=== PATIENT | male | born 1960 | race Caucasian/White ===

== ENCOUNTER 2018-07-01 10:51 | Inpatient (IN) | payer SELFPAY ==
[~2018-07-01] VITALS: Ht 180.3 cm; Wt 96.6 kg
--- NOTE | 2018-07-01 10:58 | ER Report ---
History and Physical Time Seen By MD: 10:58 HPI/ROS CHIEF COMPLAINT: Shortness of breath HISTORY OF PRESENT ILLNESS: This is a 58-year-old male who presents to the emergency department for increased shortness of breath and lower extremity edema . Patient states over the last 5-6 months he's had increased shortness of breath as well as lower extremity edema. He does not have a primary care provider however he has been following up with urgent care, he states that they've done blood work and everything is looking "okay". However the patient does have significant amount of lower extremity edema such that he is unable to lift his legs on his own. He also states that his past medical history up until about 5 or 6 months ago as been an inguinal hernia, he has a significant amount of swelling in the scrotum. He's had weeping edema in the lower extremities, he has also had several wounds that has not been healing. Over the last 1-2 weeks he's had poor circulation in the upper and lower extremities, with increased sensitivity to the cold. The patient does need a 3 person assist to get onto the gurney. Obviously short of breath. No chest pain, no nausea, no vomiting, no fevers, no chills. He does state that he's had difficulty sleeping at night, does prop his mattress up, so he states he'll just fall asleep standing up. REVIEW OF SYSTEMS: Constitutional: No fever, no chills. Eyes: No discharge. ENT: No sore throat. Cardiovascular: No chest pain, no palpitations. Respiratory: As above. Gastrointestinal: No abdominal pain, no vomiting. Genitourinary: No hematuria. Musculoskeletal: No back pain. Skin: As above. Neurological: No headache. Allergies: Coded Allergies: Penicillins (Verified Adverse Reaction, Mild, NAUSEA/VOMITING, 07/01/18) Home Meds Reported Medications Potassium Gluconate (POTASSIUM) 99 Mg Tablet, 99 MG PO QDAY 07/02/18 Magnesium Oxide (MAGNESIUM) 250 Mg Tablet, 250 MG PO QDAY 07/02/18 Multivitamin (MULTIVITAMINS) 1 Each Capsule, 1 EACH PO QDAY, CAPSULE 07/02/18 Discontinued Reported Medications [mag] No Conflict Check 07/02/18 Past Medical/Surgical History The patient has a past medical and surgical history of chronic inguinal hernia, patient also states possible myocardial infarction when he was 27. Reviewed Nurses Notes: Yes Constitutional Vital Sign - Last 24 Hours 07/01/18 07/01/18 07/01/18 07/01/18 10:51 11:04 11:10 11:15 Temp 98.3 Pulse 123 123 Resp 24 B/P (MAP) 127/97 (107) 127/97 142/111 (121) Pulse Ox 79 88 O2 Delivery Room Air Room Air 07/01/18 07/01/18 07/01/18 07/01/18 11:17 11:21 11:30 11:45 Pulse 139 Resp 25 B/P (MAP) 135/94 (108) 143/94 (110) Pulse Ox 81 O2 Delivery Nasal Cannula O2 Flow Rate 4.0 4 07/01/18 07/01/18 07/01/18 07/01/18 11:47 11:50 12:00 12:17 Pulse 122 59 Resp 31 B/P (MAP) 137/121 (126) 128/88 (101) Pulse Ox 82 87 O2 Delivery Nasal Cannula Nasal Cannula O2 Flow Rate 6 3 07/01/18 07/01/18 07/01/18 07/01/18 12:20 12:25 12:30 12:55 Pulse 89 94 87 Resp 21 20 18 B/P (MAP) 134/120 (125) Pulse Ox 92 99 89 O2 Delivery Nasal Cannula Nasal Cannula O2 Flow Rate 3 2 07/01/18 07/01/18 07/01/18 07/01/18 13:00 13:51 13:55 14:00 Pulse 112 100 Resp 27 20 B/P (MAP) 145/97 (113) 130/100 (110) 124/107 (113) Pulse Ox 89 89 O2 Delivery Nasal Cannula Nasal Cannula O2 Flow Rate 2 2 07/01/18 07/01/18 14:30 14:45 Pulse 98 Resp 24 B/P (MAP) 128/110 (116) 137/119 (125) Pulse Ox 89 O2 Delivery Nasal Cannula O2 Flow Rate 2 Physical Exam General Appearance: The patient is alert, has no immediate need for airway protection and no signs of toxicity, short of breath while talking. Eyes: Pupils equal and round no pallor or injection. ENT, Mouth: Mucous membranes are moist. Respiratory: Diminished lung sounds throughout, coarse in the right upper field. Cardiovascular: Irregular rate and rhythm, no murmurs, clicks or rubs. Gastrointestinal: Abdomen is round, soft and non tender, no masses, hypoactive bowel sounds in the right quadrants, normoactive in the left upper and lower quadrants, no abdominal bruits. Genitourinary: Massively swollen scrotum with inguinal hernia, roughly the size of a medium watermelon. Neurological: Alert and oriented 4. Moving all extremities. Following all commands. No focal neuro deficits. Skin/Extremities: 3+ pitting and weeping edema of bilateral lower extremities from knees distally, non pitting edema from the knee proximally, purplish toes and fingers with what appears to be scattered plaque psoriasis. Stage 2 Ulceration to the dorsum of the anterior surface of the right lower extermity. Musculoskeletal: Neck is supple non tender. are nontender, nonswollen and have full range of motion. DIFFERENTIAL DIAGNOSIS: After history and physical exam differential diagnosis was considered for shortness of breath including but not limited to pulmonary infectious process, COPD, asthma, pulmonary embolus and congestive heart failure. Medical Decision Making Data Points Result Diagram: 07/02/18 0544 07/03/18 0524 Laboratory Hematology Test 07/01/18 00:00 07/01/18 11:07 07/01/18 13:54 Blood Gas Puncture Site Left radial Blood Gas Patient Temperature 98.3 DEGREES Arterial Blood pH 7.35 (7.35-7.45) Arterial Blood Partial Pressure CO2 46 mmHg (32-37) Arterial Blood Partial Pressure O2 106 mmHg (60-80) Arterial Blood HCO3 26 mmol/L (20-26) Arterial Blood Oxygen Saturation 98 % (92-100) Arterial Blood Base Excess 0.0 mmol/L Kd Test Acceptable Oxygen Liters/Minute 41 D-Dimer Quantitative (PE/DVT) 3.27 ug/ml (0-0.50) Lactate 1.3 mmol/L (0.7-2.1) Magnesium Level 2.4 mg/dl (1.7-2.2) Urine Color Yellow Urine Clarity Clear Urine pH 5.0 pH (4.8-9.5) Urine Specific [place] 1.011 Urine Protein Negative mg/dL (NEGATIVE) Urine Glucose (UA) Negative mg/dL (NEGATIVE) Urine Ketones Negative mg/dL (NEGATIVE) Urine Blood Negative (NEGATIVE) Urine Nitrite Negative (NEGATIVE) Urine Bilirubin Negative (NEGATIVE) Urine Urobilinogen Negative mg/dL (0.2-1.9) Urine Leukocyte Esterase Negative (NEGATIVE) Urine RBC None /HPF (0-2/HPF) Urine WBC 2 /HPF (0-5/HPF) Urine Squamous Epithelial Cells Few /LPF (</=FEW) Urine Bacteria Negative /HPF (NONE-FEW) Urine Hyaline Casts Few /LPF (NONE-FEW) Urine Mucus None /HPF (NONE-FEW) Chemistry Test 07/01/18 00:00 07/01/18 11:07 07/01/18 13:54 Blood Gas Puncture Site Left radial Blood Gas Patient Temperature 98.3 DEGREES Arterial Blood pH 7.35 (7.35-7.45) Arterial Blood Partial Pressure CO2 46 mmHg (32-37) Arterial Blood Partial Pressure O2 106 mmHg (60-80) Arterial Blood HCO3 26 mmol/L (20-26) Arterial Blood Oxygen Saturation 98 % (92-100) Arterial Blood Base Excess 0.0 mmol/L Kd Test Acceptable Oxygen Liters/Minute 41 D-Dimer Quantitative (PE/DVT) 3.27 ug/ml (0-0.50) Lactate 1.3 mmol/L (0.7-2.1) Magnesium Level 2.4 mg/dl (1.7-2.2) Urine Color Yellow Urine Clarity Clear Urine pH 5.0 pH (4.8-9.5) Urine Specific [place] 1.011 Urine Protein Negative mg/dL (NEGATIVE) Urine Glucose (UA) Negative mg/dL (NEGATIVE) Urine Ketones Negative mg/dL (NEGATIVE) Urine Blood Negative (NEGATIVE) Urine Nitrite Negative (NEGATIVE) Urine Bilirubin Negative (NEGATIVE) Urine Urobilinogen Negative mg/dL (0.2-1.9) Urine Leukocyte Esterase Negative (NEGATIVE) Urine RBC None /HPF (0-2/HPF) Urine WBC 2 /HPF (0-5/HPF) Urine Squamous Epithelial Cells Few /LPF (</=FEW) Urine Bacteria Negative /HPF (NONE-FEW) Urine Hyaline Casts Few /LPF (NONE-FEW) Urine Mucus None /HPF (NONE-FEW) Coagulation Test 07/01/18 11:07 D-Dimer Quantitative (PE/DVT) 3.27 ug/ml Urinalysis Test 07/01/18 13:54 Urine Color Yellow Urine Clarity Clear Urine pH 5.0 pH (4.8-9.5) Urine Specific [place] 1.011 Urine Protein Negative mg/dL (NEGATIVE) Urine Glucose (UA) Negative mg/dL (NEGATIVE) Urine Ketones Negative mg/dL (NEGATIVE) Urine Blood Negative (NEGATIVE) Urine Nitrite Negative (NEGATIVE) Urine Bilirubin Negative (NEGATIVE) Urine Urobilinogen Negative mg/dL (0.2-1.9) Urine Leukocyte Esterase Negative (NEGATIVE) Urine RBC None /HPF (0-2/HPF) Urine WBC 2 /HPF (0-5/HPF) Urine Squamous Epithelial Cells Few /LPF (</=FEW) Urine Bacteria Negative /HPF (NONE-FEW) Urine Hyaline Casts Few /LPF (NONE-FEW) Urine Mucus None /HPF (NONE-FEW) Microbiology Microbiology Date/Time Source Procedure Growth Status 07/01/18 11:17 Blood Peripheral Draw Blood Culture - Final Resulted 07/01/18 11:17 Blood Peripheral Draw Blood Culture - Preliminary Resulted 07/01/18 11:10 Blood Peripheral Draw Blood Culture - Preliminary NO GROWTH AFTER 2 DAYS, REINCUBATED Resulted EKG/Imaging EKG Interpretation 12 lead EKG: Time of EKG 1121. Rhythm: Intermittent atrial fibrillation, ventricular rate 139 BPM. [place]: Right axis deviation QRS: normal ST segments: No ST depression or elevation identified. No previous EKG for comparison. Imaging EXAMINATION: CTA Chest With Contrast CT Abdomen With Contrast CT Pelvis With Contrast 07/01/2018 1:10 PM HISTORY: eval for PE. Respiratory distress. Significant inguinal hernia. TECHNIQUE: Spiral scan was obtained through the chest, abdomen and pelvis during injection of nonionic iodinated intravenous contrast. Chest imaging was timed for pulmonary arterial contrast bolus.3D slab MIPs and 2D reconstructions in the coronal and sagittal planes were performed. Contrast: 90 mL of IV Isovue 370. One of the following dose optimization techniques was utilized in the performance of this exam: Automated exposure control; adjustment of the mA and/or kV according to the patient's size; or use of an iterative reconstruction technique. Specific details can be referenced in the facility's radiology CT exam operational policy. COMPARISON STUDIES: Chest x-ray today. FINDINGS: CHEST: Pulmonary arteries: There is some motion artifact in the bases and basilar contrast passed is not optimal but no PE is demonstrated. Right main pulmonary artery measures 3.1 cm. Lungs / pleura: Airspace opacity anteromedially in the left upper lobe is better defined than on the chest x-ray. Small amount of basilar consolidation is probably atelectasis. Small bilateral effusions are present. Mediastinum / cassidy: negative Heart / pericardium: Cardiomegaly particularly with right atrial prominence. Small pericardial effusion. Other vessels: Atherosclerosis includes coronary disease. Musculoskeletal / Body wall: Body wall edema. Degenerative changes in the spine. Lymph node assessment: negative Lower neck: negative ABDOMEN AND PELVIS: Liver / biliary: Heterogeneous "nutmeg" congestive appearance in the liver. No discrete focal finding. There is some fluid around the gallbladder is probably secondary to the patient's overall fluid status rather than indicative of cholec ystitis, and the gallbladder is not distended and there is no visible cholelithiasis. Pancreas: negative Spleen: negative Adrenal glands: negative Kidneys / retroperitoneum: negative Pelvic structures: negative Bowel / peritoneum / mesenteries: Large and small bowel extending into the left inguinal hernia without obstruction. Mild diverticulosis of the distal colon. Mild ascites. Vessels: Atherosclerosis. Cava is distended. Musculoskeletal / Body wall: Massive left inguinal hernia which contains loops of large and small bowel. There is also fluid collected inferiorly towards the scrotum. Extensive body wall edema. Severe degenerative changes in the right hip with milder changes on the left. Spondylosis also present. Lymph node assessment: negative IMPRESSION: 1. Negative CTA evaluation for PE although there is some technical limitation due to diminished contrast bolus and some motion in the bases. 2. Cardiomegaly with right atrial dilatation and findings of CHF including bilateral effusions and extensive body wall edema as well as mild ascites. 3. Massive left inguinal hernia contains loops of large and small bowel as well as fluid. Report Dictated By: Jaquan Hassan MD at 07/01/2018 1:56 PM Report E-Signed By: Jaquan Hassan MD at 07/01/2018 2:10 PM WSN:[id number] ED Course/Re-evaluation Clinical Indication for ER IV: Hydration, IV Access ED Course The patient was admitted to a room. A history and physical were obtained. Differential diagnoses were considered. An IV was started. A CBC, CMP, blood cultures, lactate, d-dimer and troponin were obtained. CBC unremarkable, chemistry showing BUN 59, creatinine 1.80, GFR 39.2, magnesium 2.4, alk phosphatase 167, BNP 923, ABG pH 7.35, PCO2 46, PaO2 106, negative lactate, negative troponin UA unremarkable. EKG showing atrial fibrillation, no known hi story of A. fib. With the elevated d-dimer and A. fib as well as the edema a CTA of the chest was obtained, prior to the CTA given the patient's creatinine of 1.80, GFR of 39.2, I did speak with the radiologist on-call, they felt that it was safe to give the patient IV contrast, as I was concerned about the large inguinal hernia, I did a CT of the abdomen and pelvis, contrast was a runoff from the CT of the chest. Negative CTA, bilateral pleural effusions,, ascites and a massive left inguinal hernia containing fluid as well as a large and small bowel. The patient was also given 40 mg IV Lasix. Prior to giving the Lasix I did ultrasound the massive hernia looking for a way to place the urinary catheter however there was no clear path due to the amount scrotal edema. Is there was no way to place the catheter, the Lasix was given, the patient was able to stand at bedside and urinate. In addition to the patient's heart failure and was also concerned about a wound to the right lower extremity that will need wound care consultation as it does have the appearance of a stage II ulcer. After the Lasix was given the patient had improved aeration, patient states this is the best he has felt in roughly 2 weeks. I did review the results with the patient, I did tell the patient I was concerned with the new diagnosis of heart failure, atrial fibrillation as well as the amount of edema he has his lower extremities as well as the scrotum and the hernia. My recommendation was admission to the hospital. I did speak with Dr. Noman German the hospitalist personal care home administrator as noted below, I also spoke with Dr. Quiroga the general surgeon on- call, she did evaluate the internal hernia as noted below. Dr. German did evaluate the patient, he was admitted to the medical floor as noted below. 07/01/2018 1:10:06 pm I did have Dr. Quiroga the surgeon personal care home administrator evaluate the patients large scrotum and inguinal hernia. See her notes. 07/01/2018 1:47:21 pm I did speak with Dr. Stoney Byrd the hospitalist regarding the patients case for a possible admit, he will be in to evaluate the patient. 07/01/2018 2:50:[address] Smitha German, the hospitalist was down to [place], he is except that the patient into the hospitalist services for congestive heart failure, he will also contact urology for Bruner catheter placement and evaluation. The patient is in agreement with this plan of care. Decision to Disposition Date: Jul 01, 2018 Decision to Disposition Time: 14:50 Depart Departure Latest Vital Signs Vital Signs Date Time Temp Pulse Resp B/P (MAP) Pulse Ox O2 Delivery O2 Flow Rate FiO2 07/01/18 14:45 137/119 (125) 07/01/18 14:30 98 24 89 Nasal Cannula 2 07/01/18 11:10 98.3 Impression: Primary Impression: CHF (congestive heart failure) Additional Impressions: BILATERAL INGUINAL HERNIA, W/O OBST OR GANGRENE, RECURRENT Decubital ulcer Elevated serum creatinine Atrial fibrillation Condition: Improved Disposition: Admitted from ER Problem Qualifiers Primary Impression: CHF (congestive heart failure) Heart failure type: unspecified Heart failure chronicity: unspecified Qualified Codes: I50.9 - Heart failure, unspecified Additional Impressions: Decubital ulcer Pressure injury location: other site Pressure injury stage: stage 2 Q ualified Codes: L89.892 - Pressure ulcer of other site, stage 2 Atrial fibrillation Atrial fibrillation type: unspecified Qualified Codes: I48.91 - Unspecified atrial fibrillation SANDY PELLETIER- Jul 01, 2018 10:58
[2018-07-01 11:19] LABS: PLATELET COUNT, AUTOMATED 273 K/uL (150-450)
[2018-07-01] MEDS ORDERED: FUROSEMIDE 40 MG/4 ML VIAL IVP ONE (11:40)
--- NOTE | 2018-07-01 11:57 | RADIOLOGY IMAGING REPORT ---
FACILITY: [facility] PATIENT NAME: Rachid Milian : 1960 MR: [id number] V: [id number] EXAM DATE: ORDERING PHYSICIAN: SANDY PELLETIER TECHNOLOGIST: Location: [facility] Patient: Rachid Milian : 1960 Visit/Account:[id number] Date of Sevice: 07/01/2018 Technique: CHEST SINGLE AP HISTORY: RESP DISTRESS Comparison studies: None FINDINGS: Noted is a moderate left-sided pleural effusion. There are hazy left basilar and left midlu ng opacities. The cardiomediastinal silhouette is enlarged. IMPRESSION: 1. Moderate left-sided pleural effusion with hazy left basilar and left midlung opacities which may be secondary to atelectasis; however, airspace process such as pneumonia is difficult to fully exclud e. Report Dictated By: Raymon Dsouza DO at 07/01/2018 11:51 AM Report E-Signed By: Raymon Dsouza DO at 07/01/2018 11:53 AM WSN:[id number]
--- NOTE | 2018-07-01 12:41 | RADIOLOGY IMAGING REPORT ---
[place] [facility] [place] NAME: Rachid Milian : 1960 MR: [id number] V: [id number] EXAM DATE: ORDERING PHYSICIAN: SANDY PELLETIER TECHNOLOGIST: Location: [facility] [place] Patient: Rachid Milian : 1960 Visit/Account:[id number] Date of Sevice: 07/01/2018 Technique: ANKLE 3 VIEW MIN RIGHT HISTORY: eval for osteo Comparison studies: None FINDINGS: There is no acute fracture. The ankle mortise is maintained. No cortical destructive proces s. Soft tissue swelling surrounds ankle. IMPRESSION: 1. No acute osseous process. Report Dictated By: Raymon Dsouza DO at 07/01/2018 12:30 PM Report E-Signed By: Raymon Dsouza DO at 07/01/2018 12:36 PM WSN:[id number]
--- NOTE | 2018-07-01 12:57 | Gen Surgery History & Physical ---
History of Present Illness Chief Complaint Left inguinal hernia History of Present Illness 58 year old man presents to hospital with c/o shortness of air. Came to ED at prompting of his boss who accompanied him to the ED. Upon evaluation in the ED found to have significant symmetric pitting LE edema extending to upper thigh and scrotum bilaterally. Pt also tachycardic and short of air. Pt reports he has no known medical problems and only surgery was tonsillectomy as a child. He reports he has had LE edema and scrotal swelling for several months. He has had a known left inguinal hernia he reports for >28 years, but states that it has always been reducible "until his swelling got bad and then he didn't try." Surgery is consulted regarding possible incarceration. He denies obstructive symptoms and have normal BM daily. He denies significant inguinal or scrotal pain other than "skin tightness." History Unable To Obtain Past Medical: Pt denies past medical problems. Home Meds No Active Prescriptions or Reported Meds Allergies: Coded Allergies: Penicillins (Verified Adverse Reaction, Mild, NAUSEA/VOMITING, 07/01/18) Review of Systems Respiratory: Shortness of Breath, Cough Other Symmetric pitting LE edema and scrotal edema. Exam General Appearance: Alert, Awake Eyes: PERRLA ENT: Moist Mucous Membranes Cardiovascular: Other (tachycardic, some ectopy noted) Respiratory: Other (On nasal cannula, unlabored) GI: Abd Soft and Non-Tender : Other (Large scrotal edema making inguinal exam challenging. Bedside scrotal ultrasound shows ascitic fluid and peristalsing bowel bilaterally. ) Extremities: Edema, Other (skin blistering and weeping, skin erythematous, non- blanching) Integumentary: Other (skin blistering noted with weeping serous fluid) Psych: Alert & Oriented X3, Appropriate Mood & Affect Medical Decision Making Data Points Result Diagram: 07/01/18 1107 07/01/18 1107 Assessment and Plan Problems: (1) BILATERAL INGUINAL HERNIA, W/O OBST OR GANGRENE, RECURRENT Assessment & Plan: 07/01/18: Pt with significant edema, tachycardia, SOA. Consulted regarding known left inguinal hernia. Pt with no clinical evidence of strangulation, no obstructive symptoms, ultrasound consistent with bowel containing inguinal hernia. Pt undergoing CT scan - will f/u results. Agree with hospitalist eval/admit and optimization of medical problems before considering elective hernia repair. Should patient develop symptoms concerning for strangulation may re-consult. Venous Thromboembolism Antithrombotics Is Pt On Any Antithrombotics?: No ELISABETH CHAVIRA MD Jul 01, 2018 12:57
[2018-07-01] MEDS ORDERED: NS(*) 0.9% 500 ML BAG 500 ML IV ONE (13:15)
[2018-07-01] MEDS ORDERED: NS(*) 0.9% 50 ML BAG 50 ML ONE (13:22)
[2018-07-01] MEDS ORDERED: IOPAMIDOL 76% 100 ML INFUS BTL 100 ML ONE (13:22)
--- NOTE | 2018-07-01 13:48 | EKG ---
FACILITY: [facility] - [place] PATIENT NAME: CHAN MAYNARD : [id number] MR: [id number] V: [id number] EXAM DATE: ORDERING PHYSICIAN: SANDY PELLETIER TECHNOLOGIST: KHOI Test Reason : SOB Blood Pressure : / mmHG Vent. Rate : 139 BPM Atrial Rate : 147 BPM P-R Int : 000 ms QRS Dur : 094 ms QT Int : 304 ms P-R-T Axes : 000 120 066 degrees QTc Int : 462 ms Atrial fibrillation with rapid ventricular response Right axis deviation Low voltage QRS Septal infarct , age undetermined Abnormal ECG No previous ECGs available Confirmed by ROBERTA MENDEZ ([id number]) on 07/01/2018 3:26:15 PM Referred By: SANDY Confirmed By:ROBERTA MENDEZ
--- NOTE | 2018-07-01 14:14 | RADIOLOGY IMAGING REPORT ---
FACILITY: [facility] - [place] PATIENT NAME: Rachid Milian : 1960 MR: [id number] V: [id number] EXAM DATE: ORDERING PHYSICIAN: SANDY PELLETIER TECHNOLOGIST: Location: [facility] Patient: Rachid Milian : 1960 Visit/Account:[id number] Date of Sevice: 07/01/2018 EXAMINATION: CTA Chest With Contrast CT Abdomen With Contrast CT Pelvis With Contrast 07/01/2018 1:10 PM HISTORY: eval for PE. Respiratory distress. Significant inguinal hernia. TECHNIQUE: Spiral scan was obtained through the chest, abdomen and pelvis during injection of nonio reggie iodinated intravenous contrast. Chest imaging was timed for pulmonary arterial contrast bolus.3D slab MIPs and 2D reconstructions in the coronal and sagittal planes were performed. Contrast: 90 mL of IV Isovue 370. One of the following dose optimization techniques was utilized in the performance of this exam: Autom ated exposure control; adjustment of the mA and/or kV according to the patient's size; or use of an i terative reconstruction technique. Specific details can be referenced in the facility's radiology C T exam operational policy. COMPARISON STUDIES: Chest x-ray today. FINDINGS: CHEST: Pulmonary arteries: There is some motion artifact in the bases and basilar contrast passed is not opt imal but no PE is demonstrated. Right main pulmonary artery measures 3.1 cm. Lungs / pleura: Airspace opacity anteromedially in the left upper lobe is better defined than on the chest x-ray. Small amount of basilar consolidation is probably atelectasis. Small bilateral effusions are present. Mediastinum / cassidy: negative Heart / pericardium: Cardiomegaly particularly with right atrial prominence. Small pericardial effusi on. Other vessels: Atherosclerosis includes coronary disease. Musculoskeletal / Body wall: Body wall edema. Degenerative changes in the spine. Lymph node assessment: negative Lower neck: negative ABDOMEN AND PELVIS: Liver / biliary: Heterogeneous "nutmeg" congestive appearance in the liver. No discrete focal finding . There is some fluid around the gallbladder is probably secondary to the patient's overall fluid sta tus rather than indicative of cholecystitis, and the gallbladder is not distended and there is no vis ible cholelithiasis. Pancreas: negative Spleen: negative Adrenal glands: negative Kidneys / retroperitoneum: negative Pelvic structures: negative Bowel / peritoneum / mesenteries: Large and small bowel extending into the left inguinal hernia witho ut obstruction. Mild diverticulosis of the distal colon. Mild ascites. Vessels: Atherosclerosis. Cava is distended. Musculoskeletal / Body wall: Massive left inguinal hernia which contains loops of large and small bow el. There is also fluid collected inferiorly towards the scrotum. Extensive body wall edema. Severe d egenerative changes in the right hip with milder changes on the left. Spondylosis also present. Lymph node assessment: negative IMPRESSION: 1. Negative CTA evaluation for PE although there is some technical limitation due to diminished contr ast bolus and some motion in the bases. 2. Cardiomegaly with right atrial dilatation and findings of CHF including bilateral effusions and ex tensive body wall edema as well as mild ascites. 3. Massive left inguinal hernia contains loops of large and small bowel as well as fluid. Report Dictated By: Jaquan Hassan MD at 07/01/2018 1:56 PM Report E-Signed By: Jaquan Hassan MD at 07/01/2018 2:10 PM WSN:[id number]
--- NOTE | 2018-07-01 14:15 | RADIOLOGY IMAGING REPORT ---
FACILITY: [facility] [place] PATIENT NAME: Rachid Milian : 1960 MR: [id number] V: [id number] EXAM DATE: ORDERING PHYSICIAN: SANDY PELLETIER TECHNOLOGIST: Location: [facility] Patient: Rachid Milian : 1960 Visit/Account:[id number] Date of Sevice: 07/01/2018 EXAMINATION: CTA Chest With Contrast CT Abdomen With Contrast CT Pelvis With Contrast 07/01/2018 1:10 PM HISTORY: eval for PE. Respiratory distress. Significant inguinal hernia. TECHNIQUE: Spiral scan was obtained through the chest, abdomen and pelvis during injection of nonio reggie iodinated intravenous contrast. Chest imaging was timed for pulmonary arterial contrast bolus.3D slab MIPs and 2D reconstructions in the coronal and sagittal planes were performed. Contrast: 90 mL of IV Isovue 370. One of the following dose optimization techniques was utilized in the performance of this exam: Autom ated exposure control; adjustment of the mA and/or kV according to the patient's size; or use of an i terative reconstruction technique. Specific details can be referenced in the facility's radiology C T exam operational policy. COMPARISON STUDIES: Chest x-ray today. FINDINGS: CHEST: Pulmonary arteries: There is some motion artifact in the bases and basilar contrast passed is not opt imal but no PE is demonstrated. Right main pulmonary artery measures 3.1 cm. Lungs / pleura: Airspace opacity anteromedially in the left upper lobe is better defined than on the chest x-ray. Small amount of basilar consolidation is probably atelectasis. Small bilateral effusions are present. Mediastinum / cassidy: negative Heart / pericardium: Cardiomegaly particularly with right atrial prominence. Small pericardial effusi on. Other vessels: Atherosclerosis includes coronary disease. Musculoskeletal / Body wall: Body wall edema. Degenerative changes in the spine. Lymph node assessment: negative Lower neck: negative ABDOMEN AND PELVIS: Liver / biliary: Heterogeneous "nutmeg" congestive appearance in the liver. No discrete focal finding . There is some fluid around the gallbladder is probably secondary to the patient's overall fluid sta tus rather than indicative of cholecystitis, and the gallbladder is not distended and there is no vis ible cholelithiasis. Pancreas: negative Spleen: negative Adrenal glands: negative Kidneys / retroperitoneum: negative Pelvic structures: negative Bowel / peritoneum / mesenteries: Large and small bowel extending into the left inguinal hernia witho ut obstruction. Mild diverticulosis of the distal colon. Mild ascites. Vessels: Atherosclerosis. Cava is distended. Musculoskeletal / Body wall: Massive left inguinal hernia which contains loops of large and small bow el. There is also fluid collected inferiorly towards the scrotum. Extensive body wall edema. Severe d egenerative changes in the right hip with milder changes on the left. Spondylosis also present. Lymph node assessment: negative IMPRESSION: 1. Negative CTA evaluation for PE although there is some technical limitation due to diminished contr ast bolus and some motion in the bases. 2. Cardiomegaly with right atrial dilatation and findings of CHF including bilateral effusions and ex tensive body wall edema as well as mild ascites. 3. Massive left inguinal hernia contains loops of large and small bowel as well as fluid. Report Dictated By: Jaquan Hassan MD at 07/01/2018 1:56 PM Report E-Signed By: Jaquan Hassan MD at 07/01/2018 2:10 PM WSN:[id number]
[2018-07-01] MEDS ORDERED: INFLUENZA VIRUS VAC 0.5ML SYR IM ONLY ONE (14:50)
[2018-07-01] MEDS ORDERED: NICOTINE INH SYSTEM 10 MG/INH INH PRN (15:15)
[2018-07-01 15:16] LABS: INR 1.14
--- NOTE | 2018-07-01 15:44 | History & Physical ---
History of Present Illness History of Present Illness 58yo male with a h/o chronic LE edema, CAD and cigarette use who came to the ER for progressive FRAIRE, orthopnea, diffuse edema, and weeping legs. He was in his normal state of health until about a year ago. He started getting more consistent LE edema. About 6 months ago, the edema worsened. 2 months ago, he developed some scrotal edema. He has received three different courses of Lasix through a local urgent care for about 14 days over the last couple months for the edema, which helped a bit. He said that the cause of the edema wasn't clear. For the last few weeks, he started sleeping in a recliner because of orthopnea. He has had a multiple pillow orthopnea for about 2 years. For the last couple of days, he has had to sleeping almost standing because he can't even lay back in the recliner. In the last 2 weeks, he has had progressive FRAIRE such that in the last few days he can barely ambulate. He hasn't been able to reduce his chronic inguinal hernia for about 2 months. He has had the hernia for about 30 years. In his mid 20's when he weighed over 300lbs, he had 2 heart attacks. His RAD was occluded, but he never had any intervention done. He smokes 1/2 ppd and has smoked for about 40 years. He has 2 drinks a night, but no h/o tremors when stopping drinking for a couple of days. He denies cp/n/v/f/c/diarrhea. He has gained 50lbs in the last year. In the ER, he received 40mg of Lasix. They tried to place a Bruner catheter, but were unable to secondary the massive scrotal edema. 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 See HPI. Hx Alcohol Use: Yes (drinks daily) Review of Systems All Systems Reviewed/Normal: Yes, Except as Noted Exam Vital Signs Vital Signs Date Time Temp Pulse Resp B/P (MAP) Pulse Ox O2 Delivery O2 Flow Rate FiO2 07/01/18 14:45 137/119 (125) 07/01/18 14:30 98 24 89 Nasal Cannula 2 07/01/18 11:10 98.3 General Appearance: Alert, Awake, Other (mild wob) Neuro: No Gross deficits Eyes: PERRLA ENT: Moist Mucous Membranes Cardiovascular: Other (irreg, irreg, no m/r/g) Respiratory: Other (Decreased BS to bases) GI: Abd Soft and Non-Tender (much striae throughout abd. Line of erythema from mid abdomen down) : Other (Very enlarged scrotum about 20cm in diameter. Mildly tender to palpation. Cannot see penis. Induration/erythema in groin bilaterally. ) Extremities: Edema (2+ pitting to thighs. Diffuse erythema, non-tender in LE. Multiple areas of skin breakdown on legs with clear drainage.) Integumentary: No Jaundice, No Cyanosis Medical Decision Making Data Points Result Diagram: 07/01/18 1107 07/01/181106 Item Value Date Time Arterial Blood pH 7.35 07/01/18 0000 Arterial Blood Partial Pressure CO2 46 mmHg H 07/01/18 0000 Arterial Blood Partial Pressure O2 106 mmHg *H 07/01/18 0000 Arterial Blood HCO3 26 mmol/L 07/01/18 0000 Arterial Blood Oxygen Saturation 98 % 07/01/18 0000 Neutrophils (%) (Auto) 76.7 % H 07/01/18 1107 Lymphocytes (%) (Auto) 9.7 % L 07/01/18 1107 Monocytes (%) (Auto) 11.6 % 07/01/18 1107 Eosinophils (%) (Auto) 1.3 % 07/01/18 1107 Lactate 1.3 mmol/L 07/01/18 1107 Magnesium Level 2.4 mg/dl H 07/01/18 1107 B-Type Natriuretic Peptide 923 pg/ml H 07/01/18 1107 Alkaline Phosphatase 167 U/L H 07/01/18 1107 Troponin I 0.044 ng/ml 07/01/18 1107 Total Bilirubin 0.8 mg/dl 07/01/18 1107 Aspartate Amino Transf (AST/SGOT) 54 U/L H 07/01/18 1107 Alanine Aminotransferase (ALT/SGPT) 49 U/L 07/01/18 1107 Urine RBC None /HPF 07/01/18 1354 Urine WBC 2 /HPF 07/01/18 1354 Urine Squamous Epithelial Cells Few /LPF 07/01/18 1354 Urine Protein Negative mg/dL 07/01/18 1354 Urine Glucose (UA) Negative mg/dL 07/01/18 1354 Urine Leukocyte Esterase Negative 07/01/18 1354 Urine Bacteria Negative /HPF 07/01/18 1354 Urine Hyaline Casts Few /LPF 07/01/18 1354 D-Dimer Quantitative (PE/DVT) 3.27 ug/ml H 07/01/18 1107 Prothromb Time International Ratio 1.14 07/01/18 1107 EKG / Imaging EKG Interpretation AFib with RVR. Imaging Chest CTA - 1. Negative CTA evaluation for PE although there is some technical limitation due to diminished contrast bolus and some motion in the bases. 2. Cardiomegaly with right atrial dilatation and findings of CHF including bilateral effusions and extensive body wall edema as well as mild ascites. 3. Massive left inguinal hernia contains loops of large and small bowel as well as fluid. Abd/Pelvis CT - 1. Negative CTA evaluation for PE although there is some technical limitation due to diminished contrast bolus and some motion in the bases. 2. Cardiomegaly with right atrial dilatation and findings of CHF including luanne ateral effusions and extensive body wall edema as well as mild ascites. 3. Massive left inguinal hernia contains loops of large and small bowel as well as fluid. Ankle Xray - 1. No acute osseous process. CXR - 1. Moderate left-sided pleural effusion with hazy left basilar and left midlung opacities which may be secondary to atelectasis; however, airspace process such as pneumonia is difficult to fully exclude. Assessment and Plan Problems: (1) CHF (congestive heart failure) Status: Acute Assessment & Plan: He presented worsening LE edema for about a year, scrotal s welling for about 3 months, and progressive dyspnea and orthopnea over the last couple weeks. He has diffuse anasarca with weeping leg wounds and 20cm diameter scrotum. BNP is elevated, cardiomegaly by CT and he has bilateral pleural effusions by CT. He doesn't seek routine health care. He likely has systolic dysfunction. He was given 40mg of IV Lasix in the ER. Will check daily wts, get an echo, start a heart failure diet, check TSH, and start Coreg. (2) Anasarca Status: Acute Assessment & Plan: Secondary to CHF. He has weeping legs and might need wound care to legs. No protein in urine, INR wnl. Checking TSH. (3) Elevated serum creatinine Status: Acute Assessment & Plan: Likely secondary to CHF exacerbation. He did get IV contrast. Will follow closely. (4) Atrial fibrillation Status: Chronic Assessment & Plan: It is unclear how long he has had it. It certainly has contributed to the CHF. He was initially tachycardic to the 140's, but at rest his heart rate is around 100. He will be placed on telemetry and started on Coreg. He will be given renally dose Lovenox for stroke prophylaxis. (5) Inguinal hernia Status: Chronic Assessment & Plan: Left sided with loops of bowel in it. No evidence of strangulation. Dr. Miranda (surgery) saw the patient. (6) CAD (coronary artery disease) Status: Chronic Assessment & Plan: He reportedly had occlusion of his RAD in his mid 20's without any intervention. Might consider starting ASA when cr improves. He likely should be on a statin as well, but will wait until acute issues stabilize. Venous Thromboembolism Antithrombotics Is Pt On Any Antithrombotics?: No Exam Sepsis Risk: No Definite Risk Problem Qualifiers (1) CHF (congestive heart failure): Heart failure type: unspecified Heart failure chronicity: unspecified Qualified Codes: I50.9 - Heart failure, unspecified ROBRETA MENDEZ MD Jul 01, 2018 15:44
[2018-07-01] MEDS ORDERED: NICOTINE CARTRIDGE 1 EA PO PRN (15:55)
[2018-07-01 16:27] VITALS: BP 144/103
[2018-07-01] MEDS: ENOXAPARIN 100 MG/ML SYR SC SCH (17:13)
[2018-07-01 19:13] VITALS: BP 136/72
[2018-07-01] MEDS: CARVEDILOL 3.125 MG TAB PO SCH (20:34)
[2018-07-01] MEDS: NYSTATIN 100,000 U/GM PWD 15GM TP SCH (20:34)
[2018-07-02] VITALS (7 sets, daily range): BP systolic 102–117; BP diastolic 72–100
[2018-07-02 06:05] LABS: PLATELET COUNT, AUTOMATED 228 K/uL (150-450)
[2018-07-02 06:11] LABS: INR 1.2
[2018-07-02] MEDS: BUMETANIDE 1 MG/4 ML SDV IVP SCH ×3 (09:16→17:45)
[2018-07-02] MEDS: CARVEDILOL 3.125 MG TAB PO SCH ×2 (09:17→20:54)
[2018-07-02] MEDS: NYSTATIN 100,000 U/GM PWD 15GM TP SCH ×2 (09:17→20:54)
[2018-07-02] MEDS ORDERED: mag (12:33)
[2018-07-02] MEDS ORDERED: MULT1CAP59 PO (12:33)
[2018-07-02] MEDS ORDERED: MAGN250T34 PO (12:39)
[2018-07-02] MEDS ORDERED: POTA99TA6 PO (12:39)
--- NOTE | 2018-07-02 12:49 | Hospitalist Progress Note ---
Subjective Progress Notes Subjective 58M with minimal PMHx and did not seek frequent medical assistance, admitted for CHF. AFSHIN overnight, tolerated diuresis well. Will increase rate of diuresis today. Patient Complains of: Cardiovascular: Other (orthopnea); No: Chest Pain Respiratory: Shortness of Breath Musculoskeletal: Other (edema) Physical Exam Vital Signs Date Time Temp Pulse Resp B/P (MAP) Pulse Ox O2 Delivery O2 Flow Rate FiO2 07/02/18 11:29 97.3 107 20 108/82 (91) 97 Nasal Cannula 3.0 Intake and Output 07/02/18 07:00 Intake Total 1100 ml Output Total 2750 ml Balance -1650 ml Intake Oral 1100 ml Output Urine Total 2750 ml # Voids 4 General Appearance: Alert, Awake, No Acute Distress, Afebrile Neuro: No Gross deficits ENT: Normal Cardiovascular: Other (irregluarly irregular, severe pitting edema to thighs, grossly edematous scrotum) Respiratory: No Respiratory Distress GI: Soft and Non-Tender Extremities: Soft and Non Tender, Warm, Pulses, Perfused, Edema (severe bialteral) Result Diagram: 07/02/1844 07/02/18543 Assessment and Plan Problems: (1) CHF (congestive heart failure) Status: Acute Assessment & Plan: He presented worsening LE edema for about a year, scrotal swelling for about 3 months, and progressive dyspnea and orthopnea over the last couple weeks. He has diffuse anasarca with weeping leg wounds and 20cm diameter scrotum. BNP is elevated, cardiomegaly by CT and he has bilateral pleural effusions by CT. He doesn't seek routine health care. He likely has systolic dysfunction. He was given 40mg of IV Lasix in the ER. Will check daily wts, get an echo, started a heart failure diet, check TSH, tolerating Coreg, 1mg Bumex q8h (2) Anasarca Status: Acute Assessment & Plan: Secondary to CHF. He has weeping legs and might need wound care to legs. No protein in urine, INR wnl. Checking TSH. (3) Elevated serum creatinine Status: Acute Assessment & Plan: Likely secondary to CHF exacerbation. He did get IV contrast. Improved with diuresis, likely element of cardiorenal syndrome. (4) Atrial fibrillation Status: Chronic Assessment & Plan: It is unclear how long he has had it. It certainly has contributed to the CHF. He was initially tachycardic to the 140's, but at rest his heart rate is around 100. Placed on telemetry and started on Coreg. Renally dose Lovenox for stroke prophylaxis. (5) Inguinal hernia Status: Chronic Assessment & Plan: Left sided with loops of bowel in it. No evidence of strangulation. Dr. Miranda (surgery) saw the patient. (6) CAD (coronary artery disease) Status: Chronic Assessment & Plan: He reportedly had occlusion of his RAD in his mid 20's without any intervention. Might consider starting ASA when cr improves. He likely should be on a statin as well, but will wait until acute issues stabilize. Exam Sepsis Risk: No Definite Risk Problem Qualifiers (1) CHF (congestive heart failure): Heart failure type: unspecified Heart failure chronicity: unspecified Qualified Codes: I50.9 - Heart failure, unspecified (2) Atrial fibrillation: Atrial fibrillation type: unspecified Qualified Codes: I48.91 - Unspecified atrial fibrillation NIMISHA CARRANZA DO Jul 02, 2018 12:49
[2018-07-02] MEDS: ENOXAPARIN 100 MG/ML SYR SC SCH (16:19)
--- NOTE | 2018-07-02 16:44 | Medical Nutrition Therapy ---
Nutrition Anthropometrics Height (Inches): 71.00 Height (Calculated Centimeters: 180.890066 Weight (Pounds): 236 Weight (Calculated Kilograms): 107.048 Alex Nutrition Score: Adequate Alex Nutrition Risk Score: 17 Dietary Referral Nutrition Risk Factors: Stg 2-4 Press Ulcer, Non-Healing Wound Nutrition Risk Comment: Physical Findings Physical Appearance: Obese BMI 30-39 Skin Appearance Skin Appearance: Edema Edema Location Modifier: Both Edema Location: Lower Extremity Type of Edema: Degree of Edema: 4+ Gastrointestinal Symptoms GI Symtoms: Tube Present: Bowel Sounds: Recent Bowel Pattern: Stool Characteristics: Nutritional Diagnosis Nutritional Risk Acuity 2: CHF w/Complication, Abcess/Non-Healing Wound Nutritional Risk Acuity 4: Good Appetite Nutritional Acuity: 2-Moderate Nutrition Diagnosis: Decreased Nutrient Needs Nutrition Etiology: Physiological Causes Nutrition Problem/Etiology/Sym: Decreased Na and fluid needs r/t dx CHF AEB BNP 711 with 4+ edema. Energy Requirement: 2260 (M- St J) Protein Requirement: 107 (1gm/kg) Fluid Requirement: 2000 Diet Type: Diet as Tolerated JOSH/REG Nutrition Intervention: Change diet (recommend CHF diet) Drug: Diuretics Nutrition Monitoring & Eval Nutrition Goals: Eat 75-100% Meal RD Patient Assessment Time: [address] Assessment Type: RD Assessment Patient Nutrition Acuity: 2-Moderate Follow Up Date: Jul 06, 2018 Nutritional Comment: 07/02 Pt admitted with CHF and anasarca. Pt has 4+ weeping edema. Pt reports 50# wt gain past year. Anticipate wt loss when edema resolved. Pt is on Regualr diet and eating 100%. Recommend CHF diet. alb 2.7, BNP 711, Mg 2.4, K+ 4. Pt on K+ depleting duiretic. Currently K+ iw WNR. Nursing reported non- healing wound and 2-4 stage pressure area on admission. Pt has 3" non open wound to top of foot. No pressure ulcer reported on physical assessment. Will cont to monitor and encourage intake. GABRIELA ROSALES Jul 02, 2018 16:44
--- NOTE | 2018-07-02 16:45 | NUR ---
Physical Therapy Impression PT wound eval completed: Pt supine in bed with LE's elevated on chucks pads for absorption of drainage weeping from B) LE's. Pt notes that he had ordered over the counter compression stockings and applied them at home in order to address the increasing edema that he has been experiencing over time. Pt has evidence of blisters and wounds at creases on dorsum of ankle and foot from areas where stockings typically wrinkle. Pt also has wounds in a similar pattern at L) popliteal fossa. For all wounds: Non-excisional debridement completed with the use of tweezers to a depth of subcutaneous tissue in order to remove loosely adhered slough and freshen wound edges. Wounds cleansed with sterile saline and vasaline applied to soften excoriated and edematous skin. Vasaline gauze placed in contact with blistered and open areas and silver calcium alginate applied in 2 layers to dorsum of R) ankle to address greater area of adhered slough, followed by retrograde compression wraps, with coflex 2 stage lite on L) LE and four flex wrap applied to R) LE. If pt tolerates this level of compression without medical compromise, PT will possibly progress to four flex wraps on B) LE's to more aggressively address edema management. Physical Therapy Goals Patient's Goals
[2018-07-02] MEDS ORDERED: MAG HYD/AL HYD/SIMETH 30ML UDC PO PRN (16:50)
--- NOTE | 2018-07-02 19:16 | Miscellaneous Provider Note ---
Miscellaneous Provider Note Note 2/2 blood Cx positive for GPC, has wounds on legs though no obvious infection. Will empirically cover with vancomycin until further results available. NIMISHA CARRANZA DO Jul 02, 2018 19:16
[2018-07-02] MEDS ORDERED: VANCOMYCIN(*) 1 GM VIAL 1 GM, VANCOMYCIN (*) 0.5 GM VIAL 0.5 GM in NS(*) 0.9% 250 ML BA... IVPB SCH (21:00)
[2018-07-03] VITALS (8 sets, daily range): BP systolic 102–120; BP diastolic 66–92
[2018-07-03] MEDS: BUMETANIDE 1 MG/4 ML SDV IVP SCH ×2 (06:50→13:21)
[2018-07-03] MEDS: CARVEDILOL 3.125 MG TAB PO SCH ×2 (09:00→20:32)
[2018-07-03] MEDS: POTASSIUM CHL 20 MEQ TABCR PO SCH ×2 (10:38→17:15)
[2018-07-03] MEDS: NYSTATIN 100,000 U/GM PWD 15GM TP SCH ×2 (10:38→20:32)
--- NOTE | 2018-07-03 11:04 | Hospitalist Progress Note ---
Subjective Progress Notes Subjective He reports improvement in WOB. No concerns from staff. He did walk around a bit. Wound care dressing legs. Physical Exam Vital Signs Date Time Temp Pulse Resp B/P (MAP) Pulse Ox O2 Delivery O2 Flow Rate FiO2 07/03/18 07:12 86 07/03/18 07:12 Nasal Cannula 2.0 07/03/18 06:50 98 07/03/18 06:47 98.3 24 102/75 (84) Intake and Output 07/03/18 07:00 Intake Total 1193 ml Output Total 4275 ml Balance -3082 ml Intake Oral 1193 ml Output Urine Total 4275 ml # Voids 8 General Appearance: Alert, Awake, Other (Mild to moderate WOB) Cardiovascular: Other (Irreg irreg and borderline tachycardic) Respiratory: Clear to Auscultation : Other (Scrotum is still about 20cm diameter, but less tense ) Extremities: Edema (2+ pitting in shins.) Integumentary: No Jaundice, No Cyanosis Result Diagram: 07/02/18 0544 07/03/18 0524 Assessment and Plan Problems: (1) CHF (congestive heart failure) Status: Acute Assessment & Plan: Likely, secondary reduced EF and 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 He presented worsening LE edema for about a year, scrotal swelling for about 3 months, and progressive dyspnea and orthopnea over the last couple weeks. He has diffuse anasarca with weeping leg wounds and 20cm diameter scrotum. He doesn't seek routine health care. EF is 45-50% with global hypokinesis of LV, RV severely dilated with severe pulmonary artery pressure. He is now on Bumex 1mg IV twice daily and requiring supplemental O2. Coreg was started, but BP is limiting use. Continue IV diuresis until he edema more manageable to do ADL's. He will need Cardiology followup. (2) Anasarca Status: Acute Assessment & Plan: Secondary to CHF. He has weeping legs. Getting wound care by PT. No protein in urine, INR wnl. TSH wnl. (3) Elevated serum creatinine Status: Acute Assessment & Plan: Likely secondary to CHF exacerbation. Improving with diuresis. (4) Atrial fibrillation Status: Chronic Assessment & Plan: It is unclear how long he has had it. It certainly has contributed to the CHF. He was initially tachycardic to the 140's, but at rest his heart rate is around 100. Placed on telemetry and started on Coreg. See above. On Lovenox for stroke prophylaxis. Will start warfarin with daily INR. (5) Inguinal hernia Status: Chronic Assessment & Plan: Left sided with loops of bowel in it. No evidence of strangulation. The patient reports that he has had it for 20-30 years, but hasn't been able to reduce the hernia in the last couple of weeks prior to admission. Dr. Quiroga (surgery) saw the patient and recommended optimizing CHF before considering any surgery. (6) CAD (coronary artery disease) Status: Chronic Assessment & Plan: He reportedly had occlusion of his RAD in his mid 20's without any intervention. Might consider starting ASA, but on full dose Lovenox as above. He likely should be on a statin as well, but will wait until acute issues stabilize. Exam Sepsis Risk: No Definite Risk Problem Qualifiers (1) CHF (congestive heart failure): Heart failure type: unspecified Heart failure chronicity: unspecified Qualified Codes: I50.9 - Heart failure, unspecified (2) Atrial fibrillation: Atrial fibrillation type: unspecified Qualified Codes: I48.91 - Unspecified atrial fibrillation ROBERTA MENDEZ MD Jul 03, 2018 11:04
[2018-07-03] MEDS: WARFARIN SOD 5 MG TAB PO SCH (13:22)
[2018-07-03] MEDS: ENOXAPARIN 100 MG/ML SYR SC SCH (15:33)
[2018-07-03] MEDS ORDERED: DIGOXIN 0.5 MG/2 ML AMP IVP ONE (22:35)
[2018-07-04] MEDS ORDERED: DIGOXIN 0.5 MG/2 ML AMP IVP ONE (03:00)
[2018-07-04 03:04] VITALS: BP 99/78
[2018-07-04 05:46] LABS: INR 1.12
[2018-07-04 07:00] VITALS: BP 108/79
[2018-07-04] MEDS: POTASSIUM CHL 20 MEQ TABCR PO SCH ×2 (08:46→16:30)
[2018-07-04] MEDS: DIGOXIN 0.125 MG TAB PO SCH (08:46)
[2018-07-04] MEDS: BUMETANIDE 1 MG/4 ML SDV IVP SCH ×2 (08:46→13:35)
[2018-07-04] MEDS: NYSTATIN 100,000 U/GM PWD 15GM TP SCH ×2 (08:47→21:32)
--- NOTE | 2018-07-04 10:12 | Hospitalist Progress Note ---
Subjective Progress Notes Subjective This patient was admitted for heart failure. He had rapid afib overnight and was treated with digoxin. Patient Complains of: Cardiovascular: No: Chest Pain Respiratory: No: Shortness of Breath Physical Exam Vital Signs Date Time Temp Pulse Resp B/P (MAP) Pulse Ox O2 Delivery O2 Flow Rate FiO2 07/04/18 08:46 91 Nasal Cannula 2.5 07/04/18 08:46 98 07/04/18 07:00 97.8 20 108/79 (89) Intake and Output 07/04/18 07:00 Intake Total 1083 ml Output Total 2770 ml Balance -1687 ml Intake Oral 1083 ml Output Urine Total 2770 ml # Voids 9 # Bowel Movements 1 Cardiovascular: Regular Rate and Rhythm Respiratory: Clear to Auscultation Extremities: Edema (diffuse) Result Diagram: 07/02/18 0544 07/04/18 0533 Assessment and Plan Problems: (1) Acute systolic heart failure Assessment & Plan: He presented with diffuse edema and scrotal swelling. His echocardiogram shows an ejection fraction of 45-50%. He has been receiving Bu regis to good effect. His weight is down about 4Kg since admission. He still has significant edema. We will continue the Bumex through today. Pharmacy is evaluating the different diuretic options since he has no insurance to help with medication costs. (2) Anasarca Status: Acute Assessment & Plan: Secondary to heart failure. (3) Elevated serum creatinine Status: Acute Assessment & Plan: Likely secondary to CHF exacerbation. His creatinine improved with diuresis. (4) Atrial fibrillation Status: Chronic Assessment & Plan: This was noted on his initial EKG. He was started on carvedilol, but was not having good rate control with this. He received a digoxin load last night with good results. We placed him on scheduled digoxin today. He was also started on warfarin. (5) Inguinal hernia Status: Chronic Assessment & Plan: He does have significant scrotal edema on the left and there are also loops of bowel in it. Dr. Quiroga (surgery) saw the patient and recommended optimizing CHF before considering any surgery. (6) CAD (coronary artery disease) Status: Chronic Assessment & Plan: He reportedly had an NE in his 20's, but never had any intervention. (7) Moderate to severe pulmonary hypertension Assessment & Plan: He was noted to have severe pulmonary hypertension on his echocardiogram Exam Sepsis Risk: No Definite Risk Problem Qualifiers (1) Atrial fibrillation: Atrial fibrillation type: unspecified Qualified Codes: I48.91 - Unspecified atrial fibrillation SITA PETERSON DO Jul 04, 2018 10:12
[2018-07-04 11:12] VITALS: BP 116/79
--- NOTE | 2018-07-04 11:54 | NUR ---
Physical Therapy Impression PT/OT eval completed. Pt requires 4 L/min of supplemental O2 to maintain sats in safe range during mobility. Pt tolerated ambulation in hallway with FWW x >200'. Pt with SBA/Modified indep for transfers and ambulation. Pt would benefit from further therapy to address stairs, as his laundry facilities are in the basement and pt resides alone without local family to assist. Rec home healthcare upon d/c to further indep and complete wound care with edema reduction for B) LE's. Dressings remain intact at B) lower legs with R) leg (4-ply) demonstrating improvement in girth more so than L) leg (2-ply). Pt has decreased O2 demands and has been ambulating more. Will progress to 4 ply application to B) LE's tomorrow if improvement with fluid loss continues. Physical Therapy Goals 1. Pt to ambulate >200' with least restrictive device and vital signs in safe range with modified indep 2. Pt to anders up/down 4 steps with rail and VS in safe range 3. Pt to be modified indep with bed mobility and supine to/from sit transfers 4. Pt to be modified indep with sit to/from stand transfers Patient's Goals
--- NOTE | 2018-07-04 12:47 | NUR ---
Occupational Therapy Impression OT evaluation completed with PT. Pt. would benefit from OT services 5x/ week to increase independence in ADL. Occupational Therapy Goals 1. Pt. to perform showering activities with Min A. 2. Pt. to perform toileting activities with Mod I. 3. Pt. to perform LB dressing activities with Mod I. 4. Pt. to perform grooming activities with CARSON. Patient's Goal Addendum: 07/04/18 at 1249 by CAMI MENDEZ OTR Double documentation.
[2018-07-04] MEDS: WARFARIN SOD 5 MG TAB PO SCH (13:35)
[2018-07-04 16:05] VITALS: BP 124/69
[2018-07-04] MEDS: ENOXAPARIN 100 MG/ML SYR SC SCH (16:30)
[2018-07-04 19:19] VITALS: BP 116/76
[2018-07-05] VITALS (7 sets, daily range): BP systolic 100–121; BP diastolic 72–87
[2018-07-05 06:24] LABS: INR 1.17
[2018-07-05] MEDS: POTASSIUM CHL 20 MEQ TABCR PO SCH ×2 (08:31→16:45)
--- NOTE | 2018-07-05 09:01 | NUR ---
Physical Therapy Impression Pt making progress towards functional goals. He is Enrique for bed mobility with use of leg college archivist, SBA/Enrique for transfers with RW. Pt has increased difficulty shifting COG over JAMIR. Pt tolerated ambulation with RW, with SPO2 WNL on 3L O2. PT instruction for stair negotiation, pt with fair tolerance and re-demonstration, preferring retro descent of stairs. Pt reports that he lives alone and plans to drive himself to/from appts upon d/c. Pt will benefit from practice of car transfer in/out of his [employer] prior to d/c. Physical Therapy Goals 1. Pt to ambulate >200' with least restrictive device and vital signs in safe range with modified indep 2. Pt to anders up/down 4 steps with rail and VS in safe range 3. Pt to be modified indep with bed mobility and supine to/from sit transfers 4. Pt to be modified indep with sit to/from stand transfers Patient's Goals
--- NOTE | 2018-07-05 09:29 | NUR ---
Physical Therapy Impression PT completed conservative, selective debridement as well as wound dressing changes and application of bilateral compression stockings. Rec that pt f/u with further wound care upon d/c. Pt reports no insurance and therefore may need to pursue services through the [facility], [facility] notified. Pt will need to have at least 2x/week dressing changes. Physical Therapy Goals 1. Pt to ambulate >200' with least restrictive device and vital signs in safe range with modified indep 2. Pt to anders up/down 4 steps with rail and VS in safe range 3. Pt to be modified indep with bed mobility and supine to/from sit transfers 4. Pt to be modified indep with sit to/from stand transfers Patient's Goals
[2018-07-05] MEDS: BUMETANIDE 1 MG/4 ML SDV IVP SCH (09:39)
[2018-07-05] MEDS: NYSTATIN 100,000 U/GM PWD 15GM TP SCH ×2 (09:39→20:44)
[2018-07-05] MEDS: DIGOXIN 0.125 MG TAB PO SCH (09:39)
--- NOTE | 2018-07-05 09:52 | Hospitalist Progress Note ---
Subjective Progress Notes Subjective He reports feeling improved. HR has been better. Physical Exam Vital Signs Date Time Temp Pulse Resp B/P (MAP) Pulse Ox O2 Delivery O2 Flow Rate FiO2 07/05/18 09:39 108 07/05/18 07:44 97.8 16 108/79 (89) 96 Nasal Cannula 4.0 Intake and Output 07/05/18 07:00 Intake Total 1964 ml Output Total 2602 ml Balance -638 ml Intake Oral 1964 ml Output Urine Total 2600 ml Stool Total 2 ml # Voids 2 # Bowel Movements 1 General Appearance: Alert, Awake Cardiovascular: Other (Irregular distant) Extremities: Edema (improved under LE wraps, but significant above) Integumentary: Other (several linear lesions over both LE/multiple small weeping lesions over both LE as well) Psych: Alert & Oriented X3 Result Diagram: 07/02/18 0544 07/04/1833 Assessment and Plan Problems: (1) Acute systolic heart failure Assessment & Plan: He presented with diffuse edema and scrotal swelling. His echocardiogram shows an ejection fraction of 45-50%. He has been receiving IV diuresis with fairly good effect. His weight is down since admission. He still has significant edema. We will continue the IV diuresis. Furosemide will most likely be the better diuretic option as he has no insurance to help with medication costs. (2) Moderate to severe pulmonary hypertension Assessment & Plan: He was noted to have severe pulmonary hypertension on his echocardiogram. This is most likely responsible for most of his edema. He seems to be responding fairly well to oxygen/diuresis. He will most likely need further evaluation to find definitive cause. He will be anticoagulated as he has the a-fib as well. (3) Anasarca Status: Acute Assessment & Plan: Secondary to heart failure. (4) Elevated serum creatinine Status: Acute Assessment & Plan: Likely secondary to CHF exacerbation. His creatinine has improved with diuresis/oxygenation. (5) Atrial fibrillation Status: Chronic Assessment & Plan: This was noted on his initial EKG. He was started on carvedilol, but was not having good rate control with this. He received a digoxin load and is now on oral with fairly good results. He was also started on warfarin. Monitoring daily INR - still sub-therapeutic. (6) Inguinal hernia Status: Chronic Assessment & Plan: He does have significant scrotal edema on the left and there are also loops of bowel in it. Dr. Quiroga (surgery) saw the patient and recommended optimizing CHF before considering any surgery. (7) CAD (coronary artery disease) Status: Chronic Assessment & Plan: He reportedly had an CT in his 20's, but never had any intervention. Exam Sepsis Risk: No Definite Risk Problem Qualifiers (1) Atrial fibrillation: Atrial fibrillation type: unspecified Qualified Codes: I48.91 - Unspecified atrial fibrillation AUREA LONG MD Jul 05, 2018 09:52
[2018-07-05] MEDS: WARFARIN SOD 5 MG TAB PO SCH (13:23)
[2018-07-05] MEDS: FUROSEMIDE 40 MG/4 ML VIAL IVP SCH (13:24)
--- NOTE | 2018-07-05 15:21 | NUR ---
Occupational Therapy Impression Introduced LB AE (sock aid, gusset edger, velcro/elastic shoe laces). Pt educated on various places to obtain, if desired. Verbalized understanding. Mod (I) ambulation in room with RW. Independent toileting. Education re: energy conservation principles. Pt nearing OT goals. Requesting OT return tomorrow to ensure carryover for LB dressing. Occupational Therapy Goals 1. Pt. to perform showering activities with Min A. 2. Pt. to perform toileting activities with Mod I. 3. Pt. to perform LB dressing activities with Mod I. 4. Pt. to perform grooming activities with CARSON. Patient's Goal
[2018-07-05] MEDS: ENOXAPARIN 100 MG/ML SYR SC SCH (16:45)
[2018-07-05] MEDS ORDERED: DIGOXIN 0.5 MG/2 ML AMP IVP ONE (20:10)
[2018-07-06 02:45] VITALS: BP 119/66
[2018-07-06 05:56] LABS: PLATELET COUNT, AUTOMATED 240 K/uL (150-450)
[2018-07-06 06:02] LABS: INR 1.17
[2018-07-06 06:50] VITALS: BP 116/67
[2018-07-06] MEDS: FUROSEMIDE 40 MG/4 ML VIAL IVP SCH ×2 (09:22→13:53)
[2018-07-06] MEDS: DIGOXIN 0.125 MG TAB PO SCH (09:22)
[2018-07-06] MEDS: METOPROLOL SUCC XL 25 MG TABCR PO SCH (09:22)
[2018-07-06] MEDS: POTASSIUM CHL 20 MEQ TABCR PO SCH ×2 (09:22→17:05)
--- NOTE | 2018-07-06 09:22 | NUR ---
Occupational Therapy Impression Refused to trial LB AE as requested yesterday. Information provided for where to obtain. Pt verbalized understanding. Mod (I) ambulation with RW. Independent toileting. Independent grooming standing sinkfront. Pt has met OT goals. Reports no further questions/concerns for regarding d/c home. No further OT needs at this time. Occupational Therapy Goals 1. Pt. to perform showering activities with Min A. 2. Pt. to perform toileting activities with Mod I. 3. Pt. to perform LB dressing activities with Mod I. 4. Pt. to perform grooming activities with CARSON. Patient's Goal
[2018-07-06] MEDS: ACETAMINOPHEN 500 MG TAB PO PRN ×2 (09:23→20:29)
[2018-07-06] MEDS: NYSTATIN 100,000 U/GM PWD 15GM TP SCH ×2 (09:23→20:29)
[2018-07-06 10:43] VITALS: BP 117/63
--- NOTE | 2018-07-06 12:28 | Medical Nutrition Therapy ---
Nutrition Anthropometrics Height (Inches): 71.00 Height (Calculated Centimeters: 180.221480 Weight (Pounds): 236 Weight (Calculated Kilograms): 107.190 Alex Nutrition Score: Adequate Alex Nutrition Risk Score: 18 Dietary Referral Nutrition Risk Factors: Stg 2-4 Press Ulcer, Non-Healing Wound Nutrition Risk Comment: Physical Findings Physical Appearance: Obese BMI 30-39 Skin Appearance Skin Appearance: Edema Edema Location Modifier: Both Edema Location: Lower Extremity Type of Edema: Degree of Edema: 3+ Gastrointestinal Symptoms GI Symtoms: Tube Present: Bowel Sounds: Recent Bowel Pattern: Stool Characteristics: Nutritional Diagnosis Nutritional Risk Acuity 2: CHF w/Complication, Abcess/Non-Healing Wound Nutritional Risk Acuity 4: Good Appetite Nutritional Acuity: 2-Moderate Nutrition Diagnosis: Decreased Nutrient Needs Nutrition Etiology: Physiological Causes Nutrition Problem/Etiology/Sym: Decreased Na and fluid needs r/t dx CHF AEB BNP 711 with 4+ edema. Energy Requirement: 2260 (M- St J) Protein Requirement: 107 (1gm/kg) Fluid Requirement: 2000 Diet Type: Diet as Tolerated JOSH/REG Nutrition Intervention: Change diet (recommend CHF diet) Drug: Diuretics Nutrition Monitoring & Eval Nutrition Goals: Eat 50-100% Meal Nutrition Follow-Up: Fair Intake RD Patient Assessment Time: [address] Assessment Type: RD Assessment Patient Nutrition Acuity: 2-Moderate Follow Up Date: Jul 10, 2018 Nutritional Comment: 07/02 Pt admitted with CHF and anasarca. Pt has 4+ weeping edema. Pt reports 50# wt gain past year. Anticipate wt loss when edema resolved. Pt is on Regualr diet and eating 100%. Recommend CHF diet. alb 2.7, BNP 711, Mg 2.4, K+ 4. Pt on K+ depleting duiretic. Currently K+ iw WNR. Nursing reported non- healing wound and 2-4 stage pressure area on admission. Pt has 3" non open wound to top of foot. No pressure ulcer reported on physical assessment. Will cont to monitor and encourage intake. BK 07/06/17-pt continues to have edema but it has improved to 3+ pitting from 4+pitting on 07/02. Currently on JOSH with intake varying from 0-25-100%, but usually 100% intakes. Pt continues to take furosemide, and weight improved from 107kg-104kg, but has increased to 107kg again on 07/06. Patient also taking warfarin and enoxaprin. Labs include: 12.7 Hgb and 39.5 Hct which are both low, and decreasing. BUN has improved from 55-23. CO2 has increased from 32-37, and is high, and Na is low at 134. Pt continues to have non-healing wounds. Monitor weight from improvement of edema, and wound. Continue to monitor for changes in appetite. -FRANKIE KERN Jul 06, 2018 12:28
[2018-07-06] MEDS ORDERED: WARFARIN SOD 7.5 MG TAB PO SCH (13:00)
--- NOTE | 2018-07-06 13:00 | Hospitalist Progress Note ---
Subjective Progress Notes Subjective He reports continued orthopnea, but now is almost able to lie flat. Physical Exam Vital Signs Date Time Temp Pulse Resp B/P (MAP) Pulse Ox O2 Delivery O2 Flow Rate FiO2 07/06/18 12:20 122 07/06/18 10:43 98.8 16 117/63 (81) 94 High-Flow Nasal Cannula 2.0 Intake and Output 07/06/18 07:00 Intake Total 960 ml Output Total 2495 ml Balance -1535 ml Intake Oral 960 ml Output Urine Total 2495 ml # Bowel Movements 3 General Appearance: Alert, Awake, No Acute Distress (Normal wob) Cardiovascular: Other (irreg, irreg. No m/r/g) Respiratory: Clear to Auscultation Extremities: Edema (compression wraps on low legs bilaterally. 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 He presented worsening LE edema for about a year, scrotal swelling for about 3 months, and progressive dyspnea and orthopnea over the last couple weeks. He has diffuse anasarca with weeping leg wounds and 20cm diameter scrotum. He doesn't seek routine health care. His echocardiogram shows an ejection fraction of 45-50%. He has been receiving IV diuresis with fairly good effect. His weight is down since admission. He still has significant edema. We will continue the IV diuresis. Furosemide will most likely be the better diuretic option as he has no insurance to help with medication costs. Coreg seemed to affect BP too much, so will try Toprol at 12.5mg. (2) Moderate to severe pulmonary hypertension Assessment & Plan: See above. He seems to be responding fairly well to oxygen/diuresis. He will most likely need further evaluation to find definitive cause. He will be anticoagulated as he has the a-fib as well. (3) Anasarca Status: Acute Assessment & Plan: Secondary to heart failure. See above. (4) Elevated serum creatinine Status: Acute Assessment & Plan: Likely secondary to CHF exacerbation. His creatinine has improved with diuresis/oxygenation. (5) Atrial fibrillation Status: Chronic Assessment & Plan: This was noted on his initial EKG. He was started on carvedilol, but was having lowish BP and not having good rate control with this. He received a digoxin load and is now on oral. Will try Toprol to optimize heart rate control and for CHF. He was started on warfarin on 07/03, but still sub-therapeutic. Increase from 5mg to 7.5mg daily. (6) Inguinal hernia Status: Chronic Assessment & Plan: Left sided with loops of bowel in it. No evidence of strangulation. The patient reports that he has had it for 20-30 years, but hasn't been able to reduce the hernia in the last couple of weeks prior to admission. Dr. Quiroga (surgery) saw the patient and recommended optimizing CHF before considering any surgery. (7) CAD (coronary artery disease) Status: Chronic Assessment & Plan: He reportedly had occlusion of his RAD in his mid 20's without any intervention. Might consider starting ASA, but on full dose Lovenox as above. He likely should be on a statin as well, but will wait until acute issues stabilize. Exam Sepsis Risk: No Definite Risk Problem Qualifiers (1) Atrial fibrillation: Atrial fibrillation type: unspecified Qualified Codes: I48.91 - Unspecified atrial fibrillation ROBERTA MENDEZ MD Jul 06, 2018 13:00
[2018-07-06 15:42] VITALS: BP 131/76
[2018-07-06] MEDS: ENOXAPARIN 100 MG/ML SYR SC SCH (15:45)
--- NOTE | 2018-07-06 16:42 | NUR ---
Physical Therapy Impression Pt able to stand from the wheelchair x2 with SBA. Pt able to demonstrate safe car transfer x2 with use of step stool. Provided soft leg director loss prevention to assist with getting LEs into truck. Pt returned to room, however, he states he still plans to go outside and smoke. Nurse informed. Physical Therapy Goals 1. Pt to ambulate >200' with least restrictive device and vital signs in safe range with modified indep 2. Pt to anders up/down 4 steps with rail and VS in safe range 3. Pt to be modified indep with bed mobility and supine to/from sit transfers 4. Pt to be modified indep with sit to/from stand transfers Patient's Goals
[2018-07-06 19:28] VITALS: BP 135/90
[2018-07-06 22:48] VITALS: BP 125/95
[2018-07-07 05:58] VITALS: BP 99/75
[2018-07-07 06:05] LABS: INR 1.13
[2018-07-07 06:42] VITALS: BP 115/76
[2018-07-07] MEDS: FUROSEMIDE 40 MG/4 ML VIAL IVP SCH ×2 (08:39→13:36)
[2018-07-07] MEDS: POTASSIUM CHL 20 MEQ TABCR PO SCH ×2 (08:39→17:02)
[2018-07-07] MEDS: NYSTATIN 100,000 U/GM PWD 15GM TP SCH ×2 (08:40→21:45)
[2018-07-07] MEDS: DIGOXIN 0.25 MG TAB PO SCH (09:58)
[2018-07-07] MEDS: METOPROLOL SUCC XL 25 MG TABCR PO SCH (09:58)
--- NOTE | 2018-07-07 11:42 | NUR ---
Physical Therapy Impression Pt seen for non-billable visit. Pt reports no difficulty getting to/from the bathroom, only that the callus on his R foot is painful. Viewed callus and noted blood blister just deep and slightly inferior to callus. Discussed with Dr. Lalita James and agreed to watch for now and see if fluid will re-absorb before opening and increasing risk of infection in the area. Physical Therapy Goals 1. Pt to ambulate >200' with least restrictive device and vital signs in safe range with modified indep 2. Pt to anders up/down 4 steps with rail and VS in safe range 3. Pt to be modified indep with bed mobility and supine to/from sit transfers 4. Pt to be modified indep with sit to/from stand transfers Patient's Goals
[2018-07-07 12:01] VITALS: BP 106/61
[2018-07-07] MEDS: WARFARIN SOD 5 MG TAB PO SCH (13:37)
--- NOTE | 2018-07-07 13:59 | Hospitalist Progress Note ---
Subjective Progress Notes Subjective The patient notes that overall he is feeling better. He complains of pain on the bottom of his foot. His scrotal edema is slightly improved. His LE edema is better. Physical Exam Vital Signs Date Time Temp Pulse Resp B/P (MAP) Pulse Ox O2 Delivery O2 Flow Rate FiO2 07/07/18 12:01 124 20 106/61 (76) 95 High-Flow Nasal Cannula 2.0 07/07/18 06:42 97.6 Intake and Output 07/07/18 07:00 Intake Total 3000 ml Output Total 2100 ml Balance 900 ml Intake Oral 3000 ml Output Urine Total 2100 ml # Voids 4 # Bowel Movements 1 General Appearance: Alert, Awake, No Acute Distress, Afebrile Neuro: No Gross deficits Eyes: PERRLA Cardiovascular: Other (Irregularly irregular, tachycardic. ) Respiratory: Clear to Auscultation GI: Soft and Non-Tender : Other (Significant scrotal swelling noted.) Extremities: Other (LE are wrapped. Back of left leg with redness, visiable open areas without significant drainage. 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 He presented worsening LE edema for about a year, scrotal swelling for about 3 months, and progressive dyspnea and orthopnea over the last couple weeks. He has diffuse anasarca with weeping leg wounds and 20cm diameter scrotum. He doesn't seek routine health care. His echocardiogram shows an ejection fraction of 45-50%. He has been receiving IV diuresis with fairly good effect. His weight is down since admission. He still has significant edema. We will continue the IV diuresis. Furosemide will most likely be the better diuretic option as he has no insurance to help with medication costs. Coreg seemed to affect BP too much, so switched to Toprol at 12.5mg which he seems to be tolerating well. (2) Moderate to severe pulmonary hypertension Assessment & Plan: See above. He seems to be responding fairly well to oxygen/diuresis. He will most likely need further evaluation to find definitive cause. He does have a long smoking history and admits to smoking 7 PPD at one point. He will be anticoagulated as he has the a-fib as well. (3) Anasarca Status: Acute Assessment & Plan: Secondary to heart failure. See above. (4) Elevated serum creatinine Status: Acute Assessment & Plan: Likely secondary to CHF exacerbation. His creatinine has improved with diuresis/oxygenation. (5) Atrial fibrillation Status: Chronic Assessment & Plan: This was noted on his initial EKG. He was started on carvedilol, but was having lowish BP and not having good rate control with this. He received a digoxin load and is now on oral. His rate is better but still high. Will increase digoxin to 0.25mg daily. His level 07/06/18 was 0.7 so there is room to increase his dose. Will try Toprol to optimize heart rate control and for CHF. He was started on warfarin on 07/03, but still sub-therapeutic. He has been increased to 10mg daily. (6) Inguinal hernia Status: Chronic Assessment & Plan: Left sided with loops of bowel in it. No evidence of strangulation. The patient reports that he has had it for 20-30 years, but hasn't been able to reduce the hernia in the last couple of weeks prior to admission. Dr. Quiroga (surgery) saw the patient and recommended optimizing CHF before considering any surgery. (7) CAD (coronary artery disease) Status: Chronic Assessment & Plan: He reportedly had occlusion of his RAD in his mid 20's without any intervention. Might consider starting ASA, but on full dose Lovenox as above. He likely should be on a statin as well, but will wait until acute issues stabilize. Time Spent on Plan of Care: < 30 min Exam Sepsis Risk: No Definite Risk Problem Qualifiers (1) Atrial fibrillation: Atrial fibrillation type: unspecified Qualified Codes: I48.91 - Unspecified atrial fibrillation PARIS LONG MD Jul 07, 2018 13:59
[2018-07-07 15:42] VITALS: BP 95/59
[2018-07-07] MEDS: ENOXAPARIN 100 MG/ML SYR SC SCH (16:36)
[2018-07-07 19:20] VITALS: BP 114/62
[2018-07-07 23:07] VITALS: BP 126/85
[2018-07-08] MEDS: ACETAMINOPHEN 500 MG TAB PO PRN (01:20)
[2018-07-08 02:20] VITALS: BP 109/85
[2018-07-08 06:15] LABS: INR 1.18
[2018-07-08 06:19] LABS: PLATELET COUNT, AUTOMATED 256 K/uL (150-450)
[2018-07-08 07:32] VITALS: BP 117/89
[2018-07-08] MEDS: DIGOXIN 0.25 MG TAB PO SCH (08:33)
[2018-07-08] MEDS: POTASSIUM CHL 20 MEQ TABCR PO SCH ×2 (08:33→16:34)
[2018-07-08] MEDS: METOPROLOL SUCC XL 25 MG TABCR PO SCH (08:34)
[2018-07-08] MEDS: NYSTATIN 100,000 U/GM PWD 15GM TP SCH ×2 (08:34→20:51)
[2018-07-08] MEDS: FUROSEMIDE 40 MG/4 ML VIAL IVP SCH ×2 (08:34→13:30)
[2018-07-08 11:04] VITALS: BP 116/82
[2018-07-08] MEDS: WARFARIN SOD 5 MG TAB PO SCH (13:30)
--- NOTE | 2018-07-08 14:04 | Hospitalist Progress Note ---
Subjective Progress Notes Subjective 58M admitted for CHF. AFSHIN overnight, no new complaints this am. DIscussed need to decrease water intake and sodium limitation. Patient Complains of: Respiratory: No: Cough Gastrointestinal: No Nausea, No Vomiting Physical Exam Vital Signs Date Time Temp Pulse Resp B/P (MAP) Pulse Ox O2 Delivery O2 Flow Rate FiO2 07/08/18 11:04 98.6 78 23 116/82 (93) 93 Nasal Cannula 3.0 Intake and Output 07/08/18 07:00 Intake Total 2480 ml Output Total 775 ml Balance 1705 ml Intake Oral 2480 ml Output Urine Total 775 ml # Voids 4 General Appearance: Alert, Awake Neuro: No Gross deficits ENT: Normal Cardiovascular: Other (irregularly irregular) Respiratory: No Respiratory Distress GI: Soft and Non-Tender : Other (scrotal edema) Extremities: Soft and Non Tender, Warm, Pulses, Perfused, Edema Integumentary: Skin Intact without Lesion / Mass Result Diagram: 07/08/1852107/08/18521 Assessment and Plan Problems: (1) Acute systolic heart failure Assessment & Plan: Likely, secondary reduced EF, atrial fibrillation with RVR and 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 He presented worsening LE edema for about a year, scrotal swelling for about 3 months, and progressive dyspnea and orthopnea over the last couple weeks. He has diffuse anasarca with weeping leg wounds and 20cm diameter scrotum. He doesn't seek routine health care. His echocardiogram shows an ejection fraction of 45-50%. Furosemide will most likely be the better diuretic option as he has no insurance to help with medication costs. Coreg seemed to affect BP too much, so switched to Toprol at 12.5mg which he seems to be tolerating well. He was over drinking diuretic for 2 days discussed need to decrease intake. (2) Moderate to severe pulmonary hypertension Assessment & Plan: See above. He seems to be responding fairly well to oxygen/diuresis. He will most likely need further evaluation to find definitive cause. He does have a long smoking history and admits to smoking 7 PPD at one point as well as continues to smoke. He will be anticoagulated as he has the a- fib as well. (3) Anasarca Status: Acute Assessment & Plan: Secondary to heart failure. See above. (4) Elevated serum creatinine Status: Acute Assessment & Plan: Likely secondary to CHF exacerbation. His creatinine has improved with diuresis/oxygenation. (5) Atrial fibrillation Status: Chronic Assessment & Plan: This was noted on his initial EKG. He was started on carvedilol, but was having lowish BP and not having good rate control with this. He received a digoxin load and is now on oral. His rate is better but still high. Will increase digoxin to 0.25mg daily. His level 07/06/18 was 0.7 so there is room to increase his dose. Will try Toprol to optimize heart rate control and for CHF. He was started on warfarin on 07/03, but still sub-therapeutic. He has been increased to 10mg daily. (6) Inguinal hernia Status: Chronic Assessment & Plan: Left sided with loops of bowel in it. No evidence of strangulation. The patient reports that he has had it for 20-30 years, but hasn't been able to reduce the hernia in the last couple of weeks prior to ad mission. Dr. Quiroga (surgery) saw the patient and recommended optimizing CHF before considering any surgery. (7) CAD (coronary artery disease) Status: Chronic Assessment & Plan: He reportedly had occlusion of his RAD in his mid 20's without any intervention. Might consider starting ASA, but on full dose Lovenox as above. He likely should be on a statin as well, but will wait until acute issues stabilize. Exam Sepsis Risk: Sepsis Risk Problem Qualifiers (1) Atrial fibrillation: Atrial fibrillation type: unspecified Qualified Codes: I48.91 - Unspecified atrial fibrillation CATE ROBLERONIMISHA Jul 08, 2018 14:04
[2018-07-08 16:06] VITALS: BP 117/78
[2018-07-08] MEDS: ENOXAPARIN 100 MG/ML SYR SC SCH (16:34)
[2018-07-08 18:59] VITALS: BP 125/76
--- NOTE | 2018-07-08 19:00 | NUR ---
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
[2018-07-09 00:12] VITALS: BP 100/76
[2018-07-09 05:38] VITALS: BP 103/73
[2018-07-09 05:48] LABS: INR 1.32
[2018-07-09 07:38] VITALS: BP 120/69
[2018-07-09] MEDS: FUROSEMIDE 40 MG/4 ML VIAL IVP SCH ×2 (08:22→14:36)
[2018-07-09] MEDS: METOPROLOL SUCC XL 25 MG TABCR PO SCH (08:22)
[2018-07-09] MEDS: POTASSIUM CHL 20 MEQ TABCR PO SCH ×2 (08:22→16:48)
[2018-07-09] MEDS: NYSTATIN 100,000 U/GM PWD 15GM TP SCH ×2 (08:23→23:42)
[2018-07-09] MEDS: DIGOXIN 0.25 MG TAB PO SCH (08:23)
--- NOTE | 2018-07-09 10:42 | Hospitalist Progress Note ---
Subjective Progress Notes Subjective He has had increasing pain in right foot. Edema has improved. Physical Exam Vital Signs Date Time Temp Pulse Resp B/P (MAP) Pulse Ox O2 Delivery O2 Flow Rate FiO2 07/09/18 08:23 93 07/09/18 07:38 97.7 20 120/69 (86) 92 High-Flow Nasal Cannula 2.0 Intake and Output 07/09/18 07:00 Intake Total 1276 ml Output Total 2550 ml Balance -1274 ml Intake Oral 1276 ml Output Urine Total 2550 ml # Voids 1 Cardiovascular: Other (Irregular) Extremities: Warm, Perfused, Edema, Other (large fluid filled callous over right MTP area with surrounding erythema/very tender to palpation/no open area at this time) Integumentary: Generalized Fragile Skin Psych: Alert & Oriented X3 Result Diagram: 07/08/18 0507/09/18 05 Assessment and Plan Problems: (1) Acute systolic heart failure Assessment & Plan: Likely, secondary reduced EF, atrial fibrillation with RVR and 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 He presented worsening LE edema for about a year, scrotal swelling for about 3 months, and progressive dyspnea and orthopnea over the last couple weeks. He has diffuse anasarca with weeping leg wounds and 20cm diameter scrotum. He doesn't seek routine health care. His echocardiogram shows an ejection fraction of 45-50%. Furosemide will most likely be the better diuretic option as he has no insurance to help with medication costs. Coreg seemed to affect BP too much, so switched to Toprol at 12.5mg which he seems to be tolerating well. He was over drinking diuretic output for [address] Han discussed need to decrease intake. (2) Moderate to severe pulmonary hypertension Assessment & Plan: See above. He seems to be responding fairly well to oxygen/diuresis. He will most likely need further evaluation to find definitive cause. He does have a long smoking history and admits to smoking 7 PPD at one point as well as continues to smoke. He will be anticoagulated as he has the a- fib as well. (3) Anasarca Status: Acute Assessment & Plan: Secondary to heart failure. See above. (4) Elevated serum creatinine Status: Acute Assessment & Plan: Likely secondary to CHF exacerbation. His creatinine has improved with diuresis/oxygenation. (5) Atrial fibrillation Status: Chronic Assessment & Plan: This was noted on his initial EKG. He was started on carvedilol, but was having lowish BP and not having good rate control with this. He received a digoxin load and is now on oral. We also added Toprol to optimize heart rate control and for CHF. He was started on warfarin on 07/03, but still sub-therapeutic. He has been increased to 10mg daily. (6) Inguinal hernia Status: Chronic Assessment & Plan: Left sided with loops of bowel in it. No evidence of strangulation. The patient reports that he has had it for 20-30 years, but hasn't been able to reduce the hernia in the last couple of weeks prior to admission. Dr. Quiroga (surgery) saw the patient and recommended optimizing CHF before considering any surgery. (7) CAD (coronary artery disease) Status: Chronic Assessment & Plan: He reportedly had occlusion of his RCA in his mid 20's without any intervention. Might consider starting ASA, but on full dose Lovenox as above. He likely should be on a statin as well, but will wait until acute issues stabilize. (8) Wound of foot Status: Acute Assessment & Plan: I suspect he has an infected callous with some surrounding cellulitis. Will discuss with wound care team. Get cultures. Start IV antibiotics with clindamycin and cefepime. Modify antibiotics based on cultures. Exam Sepsis Risk: No Definite Risk Problem Qualifiers (1) Atrial fibrillation: Atrial fibrillation type: unspecified Qualified Codes: I48.91 - Unspecified atrial fibrillation AUREA LONG MD Jul 09, 2018 10:42
[2018-07-09] MEDS ORDERED: CLINDAMYCIN 600 MG/4 ML 600 MG in NS(*) 0.9% 100 ML BAG 100 ML IVPB SCH (11:00)
--- NOTE | 2018-07-09 11:18 | NUR ---
Physical Therapy Impression Pt has met PT goals with regard to mobility and notes the he does feel confident with stairs as well. Pt is indep to don and doff O2 and is aware that he should leave this on during increased exertion, but chooses instead to take it off for mobility to/from BR. PT to discharge mobility portion, but plans to stay involved for wound care strategies due to exacerbation at R) plantar foot with new abscess apparent. Non-excisional debridement completed with the use of tweezers to a depth of subcutaneous tissue in order to remove adhered yellow slough and non-viable tissue. Wounds cleansed with sterile saline and periwound skin treated with vasaline. Wounds then treated with silver calcium alginate and retrograde compression wraps with four flex to further encourage edema management. New area of blister formed where previous callus at R) plantar surface of 3rd MTP joint is located. Purulent drainage noted beneath roof, with pressure, tenderness and redness spreading. Dr. Aren James requested PT to address this area and obtain a culture. PT completed excisional debridement with the use of scissors and tweezers to a depth of subcutaneous tissue in order to remove roof of callus and blister and evacuate purulent drainage. Center of wound demos a somewhat deeper area that extends approximately 0.5cm in depth and undermines from 12-4 o'clock to 0.4cm at well. Wound was cleansed with sterile saline and both aerobic and anerobic cultures were taken from depth of wound per Dr. Kristen James's orders. Wound was then treated with silver calcium alginate and covered with silver mepilex foam, secured with retrograde wrap of 4 layer compression wrap to address edema management. Physical Therapy Goals 1. Pt to ambulate >200' with least restrictive device and vital signs in safe range with modified indep 2. Pt to anders up/down 4 steps with rail and VS in safe range 3. Pt to be modified indep with bed mobility and supine to/from sit transfers 4. Pt to be modified indep with sit to/from stand transfers Patient's Goals
[2018-07-09] MEDS: CLINDAMYCIN(*) 600 MG/NS 50 ML 50 ML IVPB SCH ×2 (11:27→18:16)
[2018-07-09] MEDS ORDERED: NS(*) 0.9% 250 ML BAG 250 ML ONE (11:27)
[2018-07-09 11:39] VITALS: BP 106/72
[2018-07-09] MEDS: CEFEPIME HCL 2 GM VIAL IVP SCH ×2 (12:17→23:42)
--- NOTE | 2018-07-09 12:18 | NUR ---
1130 abx given late due to prior abx administration
[2018-07-09] MEDS ORDERED: GADOBENATE 529MG/1ML 15ML VIAL IVP ONE (12:45)
--- NOTE | 2018-07-09 13:34 | Medical Nutrition Therapy ---
Nutrition Anthropometrics Height (Inches): 71.00 Height (Calculated Centimeters: 180.217753 Weight (Pounds): 222 Weight (Calculated Kilograms): 100.698 Alex Nutrition Score: Adequate Alex Nutrition Risk Score: 16 Dietary Referral Nutrition Risk Factors: Stg 2-4 Press Ulcer, Non-Healing Wound Nutrition Risk Comment: Physical Findings Physical Appearance: Obese BMI 30-39 Skin Appearance Skin Appearance: Edema Edema Location Modifier: Both Edema Location: Lower Extremity Type of Edema: Degree of Edema: 2+ Gastrointestinal Symptoms GI Symtoms: Tube Present: Bowel Sounds: Recent Bowel Pattern: Stool Characteristics: Nutritional Diagnosis Nutritional Risk Acuity 2: CHF w/Complication, Abcess/Non-Healing Wound Nutritional Risk Acuity 4: Good Appetite Nutritional Acuity: 2-Moderate Nutrition Diagnosis: Decreased Nutrient Needs Nutrition Etiology: Physiological Causes Nutrition Problem/Etiology/Sym: Decreased Na and fluid needs r/t dx CHF AEB BNP 711 with 4+ edema. Energy Requirement: 2260 (M- St J) Protein Requirement: 107 (1gm/kg) Fluid Requirement: 2000 Diet Type: 2 Gram Sodium (NA), CHF Diet Nutrition Intervention: Cont diet as ordered, Encourage intake Drug: Diuretics Nutritional Education Nutrition Education Topic: Congested Heart Failure Learning Readiness: Interested Teaching Methods: Discussion, Handout Response to Teaching: Verbalize understanding Teaching Recipient: Patient Nutrition Counseling: Pt states has been following low Na diet for several years. Pt demonstrated knowledge by correctly identifying high Na foods. Provided handout of CHF diet with contact information. Pt encouraged to contact Rd if any issues or concerns. Nutrition Monitoring & Eval Nutrition Goals: Eat 75-100% Meal, Fluid Restrictions Nutrition Follow-Up: Good Intake RD Patient Assessment Time: [address] Assessment Type: RD Re-Assessment Patient Nutrition Acuity: 2-Moderate Follow Up Date: Jul 13, 2018 Nutritional Comment: 07/02 Pt admitted with CHF and anasarca. Pt has 4+ weeping edema. Pt reports 50# wt gain past year. Anticipate wt loss when edema resolved. Pt is on Regualr diet and eating 100%. Recommend CHF diet. alb 2.7, BNP 711, Mg 2.4, K+ 4. Pt on K+ depleting duiretic. Currently K+ iw WNR. Nursing reported non- healing wound and 2-4 stage pressure area on admission. Pt has 3" non open wound to top of foot. No pressure ulcer reported on physical assessment. Will cont to monitor and encourage intake. JANET 07/06/17-pt continues to have edema but it has improved to 3+ pitting from 4+pitting on 07/02. Currently on JOSH with intake varying from 0-25-100%, but usually 100% intakes. Pt continues to take furosemide, and weight improved from 107kg-104kg, but has increased to 107kg again on 07/06. Patient also taking warfarin and enoxaprin. Labs include: 12.7 Hgb and 39.5 Hct which are both low, and decreasing. BUN has improved from 55-23. CO2 has increased from 32-37, and is high, and Na is low at 134. Pt continues to have non-healing wounds. Monitor weight from improvement of edema, and wound. Continue to monitor for changes in appetite. -AKG 07/09 Pt cont on CHF diet. Pt reports following Lo NA diet at home. Wt id down 14#. Edema down from 4+ to 2+ pitting. Pt cont K+ depleting duirecti and K+ cont WNR at 4.4. ab Declined to 2.6. Edema may be affecting alb levels. Intake average 91%. Will cont to monitor and encourage intake. GABRIELA ROSALES Jul 09, 2018 13:34
[2018-07-09] MEDS: WARFARIN SOD 5 MG TAB PO SCH (14:35)
[2018-07-09 14:42] VITALS: BP 113/82
--- NOTE | 2018-07-09 15:00 | RADIOLOGY IMAGING REPORT ---
FACILITY: [facility] [place]IENT NAME: Rachid Milian : 1960 MR: [id number] V: [id number] EXAM DATE: ORDERING PHYSICIAN: AUREA LONG TECHNOLOGIST: Location: [facility] Patient: Rachid Milian : 1960 Visit/Account:[id number] Date of Sevice: 07/09/2018 MRI right foot with and without contrast Indication: Soft tissue wound of the right forefoot. Evaluate for abscess. Evaluate for osteomyelitis . Comparison: None available Technique: Multiplanar, multisequence MRI examination is performed of the right foot before and after the administration of 15 mL IV MultiHance. Findings: There is a soft tissue defect/ulceration involving the plantar margin of the right forefoot. This is seen along the plantar aspect of the third and fourth metatarsal heads. There is skin thickening surr ounding the defect. There is subcutaneous edema deep to the wound. Following the administration of ga dolinium, there is evidence of peripheral skin thickening/enhancement and the subcutaneous tissues de monstrate enhancement. Deep to the wound and interposed between the wound and the third metatarsal he ad, there is a focal area which does not enhance. There is linear tracking towards the base of the wo und. This measures up to 1.2 x 0.7 x 0.5 cm in size. Appearance would favor a soft tissue phlegmon wi th a developing soft tissue abscess seen centrally within the subcutaneous enhancement. The adjacent flexor tendon to the third toe is intact. No evidence of septic arthropathy at the third metatarsopha langeal joint. No MR evidence to suggest osteomyelitis. In addition to the plantar sided soft tissue findings, there is extensive edema within the dorsal sub cutaneous tissues of the forefoot. The soft tissues demonstrate mild post gadolinium enhancement and there is enhancement of the skin. Correlate for changes of cellulitis. No dorsal soft tissue fluid co llection/abscess is seen. There are mild changes of first metatarsophalangeal joint osteoarthritis. Remaining forefoot joints a ppear intact. The included intrinsic muscle from the foot is normal in bulk. No evidence of atrophy. IMPRESSION: 1. Plantar right forefoot ulcer with MR evidence consistent with phlegmon within the underlying subcu taneous tissues with a small, central subcutaneous abscess with measurements as above. There may be l inear extension of this abscess to the base of the wound. 2. No MRI evidence of right forefoot osteomyelitis or septic arthropathy. 3. Marked edema and skin thickening with enhancement involving the dorsal forefoot. Correlate for vanessa nges of cellulitis. Report Dictated By: Edi Guerra at 07/09/2018 2:43 PM Report E-Signed By: Edi Guerra at 07/09/2018 2:56 PM WSN:[id number]
--- NOTE | 2018-07-09 15:08 | NUR ---
Patient has left floor in wheelchair and planned on going to truck to smoke. Pt educated on not smoking and leaving the floor without anyone.
--- NOTE | 2018-07-09 15:11 | NUR ---
Patient was also educated on not smoking with oxygen therapy as it can lead to de la paz and possible explosions with oxygen.
--- NOTE | 2018-07-09 18:01 | NUR ---
Pt requested the co-flex be removed due to him stating it is "tight". Pt educated on importance but still wanted to proceed.
[2018-07-09 18:55] VITALS: BP 121/108
--- NOTE | 2018-07-09 21:05 | NUR ---
He is refusing to wear O2, sats 84-87% on room air. I attempted to educate him on the need for oxygen, but he was not interested. "I don't feel like I need it, so I wont wear it."
[2018-07-10] MEDS: CLINDAMYCIN(*) 600 MG/NS 50 ML 50 ML IVPB SCH ×3 (03:13→18:37)
[2018-07-10 03:15] VITALS: BP 121/44
[2018-07-10 06:15] LABS: PLATELET COUNT, AUTOMATED 253 K/uL (150-450)
[2018-07-10 06:23] LABS: INR 1.56
[2018-07-10 07:26] VITALS: BP 122/68
[2018-07-10] MEDS: POTASSIUM CHL 20 MEQ TABCR PO SCH ×2 (07:41→16:53)
[2018-07-10] MEDS: FUROSEMIDE 80 MG TAB PO SCH ×2 (08:27→13:29)
[2018-07-10] MEDS: DIGOXIN 0.25 MG TAB PO SCH (08:29)
[2018-07-10] MEDS: METOPROLOL SUCC XL 25 MG TABCR PO SCH (08:29)
[2018-07-10] MEDS: NYSTATIN 100,000 U/GM PWD 15GM TP SCH ×2 (08:32→22:02)
--- NOTE | 2018-07-10 09:15 | Hospitalist Progress Note ---
Subjective Progress Notes Subjective This patient was admitted for heart failure. He had no acute events overnight. Patient Complains of: Cardiovascular: No: Chest Pain Respiratory: No: Shortness of Breath Physical Exam Vital Signs Date Time Temp Pulse Resp B/P (MAP) Pulse Ox O2 Delivery O2 Flow Rate FiO2 07/10/18 08:29 96 07/10/18 07:26 98.3 20 122/68 (86) 97 High-Flow Nasal Cannula 07/09/18 20:07 2.0 Intake and Output 07/10/18 07:00 Intake Total 1900 ml Output Total 1150 ml Balance 750 ml Intake Oral 1850 ml IV Total 50 ml Output Urine Total 1150 ml # Voids 6 # Bowel Movements 1 Neuro: No Gross deficits Eyes: PERRLA Cardiovascular: Regular Rate and Rhythm Respiratory: Clear to Auscultation : Other (Scrotal swelling.) Extremities: Edema Result Diagram: 07/10/1854707/10/18547 Assessment and Plan Problems: (1) Acute systolic heart failure Assessment & Plan: He presented worsening LE edema for about a year, scrotal swelling for about 3 months, and progressive dyspnea and orthopnea over the last couple weeks. He had diffuse anasarca with weeping leg wounds and 20cm diameter scrotum. His echocardiogram showed an ejection fraction of 45-50%. He is on treatment with Lasix and Toprol. The Lasix has been converted to oral dosing today. He has lost approximately 10Kg since admission. (2) Moderate to severe pulmonary hypertension Assessment & Plan: He seems to be responding fairly well to oxygen/diuresis. He will most likely need further evaluation to find definitive cause. He does have a long smoking history and admits to smoking 7 PPD at one point and continues to smoke. (3) Anasarca Status: Acute Assessment & Plan: Secondary to heart failure. See above. (4) Elevated serum creatinine Status: Acute Assessment & Plan: Resolved with treatment of heart failure. (5) Atrial fibrillation Status: Chronic Assessment & Plan: This was noted on his initial EKG. He is on treatment with metoprolol, digoxin, and warfarin. He continues on Lovenox bridging until his INR is therapeutic. (6) Inguinal hernia Status: Chronic Assessment & Plan: Left sided with loops of bowel in it. No evidence of strangulation. The patient reports that he has had it for 20-30 years, but hasn't been able to reduce the hernia in the last couple of weeks prior to admission. Dr. Quiroga (surgery) saw the patient and recommended optimizing CHF before considering any surgery. (7) CAD (coronary artery disease) Status: Chronic Assessment & Plan: He reportedly had occlusion of his RCA in his mid 20's without any intervention. Might consider starting ASA, but on full dose Lovenox as above. He likely should be on a statin as well, but will wait until acute issues stabilize. (8) Wound of foot Status: Acute Assessment & Plan: He was found to have an ulcer on his right foot. An MRI showed what is possibly a small abscess deep to the main wound. This was evaluated by Dr. Villalta, and no surgical treatment is required at this time. He is on treatment with cefepime and clindamycin. Wound care is ongoing. A culture is pending. Exam Sepsis Risk: No Definite Risk Problem Qualifiers (1) Atrial fibrillation: Atrial fibrillation type: unspecified Qualified Codes: I48.91 - Unspecified atrial fibrillation SITA PETERSON DO Jul 10, 2018 09:15
--- NOTE | 2018-07-10 09:51 | General Surgery Consultation ---
History of Present Illness Requesting Physician Dr. Clive James, hospitalist service Reason for Consult Wound on right foot Chief Complaint Wound on right foot History of Present Illness 58-year-old male admitted to the hospitalist service with severe CHF with anasarca and severe bilateral lower extremity edema. He has been in the hospital for over the last 2 weeks. They have been wrapping his legs to help relieve the edema. When unwrapping his legs yesterday they found a callus on the plantar surface of his right foot and also a new ulcer on the anterior ankle right where the flexion point of the ankle is apparently where the wrapping was too tight across there and caused skin breakdown. The main reason for the consult to me today is that the wound care team removed a callus on the plantar surface of his foot revealing an ulcer and an MRI of his foot does not reveal osteomyelitis but does reveal evidence of a phlegmon and a small abscess this possibly communicating with the ulcer. The patient has no complaints today. He did have pain in this area but after the unroofed the callus and drained the purulent material his foot is feeling much better. History Problems: (1) Inguinal hernia Status: Chronic (2) CAD (coronary artery disease) Status: Chronic (3) Atrial fibrillation Status: Chronic (4) CHF (congestive heart failure) Status: Acute (5) Elevated serum creatinine Status: Acute (6) Decubital ulcer Status: Acute (7) History of tonsillectomy Home Meds Reported Medications Potassium Gluconate (POTASSIUM) 99 Mg Tablet, 99 MG PO QDAY 07/02/18 Magnesium Oxide (MAGNESIUM) 250 Mg Tablet, 250 MG PO QDAY 07/02/18 Multivitamin (MULTIVITAMINS) 1 Each Capsule, 1 EACH PO QDAY, CAPSULE 07/02/18 Allergies: Coded Allergies: Penicillins (Verified Adverse Reaction, Mild, NAUSEA/VOMITING, 07/01/18) Review of Systems All Systems Reviewed/Normal: Yes, Except as Noted Exam Vital Signs Vital Signs Date Time Temp Pulse Resp B/P (MAP) Pulse Ox O2 Delivery O2 Flow Rate FiO2 07/10/18 08:29 96 07/10/18 07:26 98.3 20 122/68 (86) 97 High-Flow Nasal Cannula 07/09/18 20:07 2.0 General Appearance: Alert, Awake, No Acute Distress, Afebrile Integumentary: Other (I removed the wrapping on his right lower extremity and all of the dressings were removed and I inspected the dorsal ulcer which is full-thickness but is not down to tendon. There is no signs of infection. The plantar ulcer is approximately 2.5 cm in diameter and is full-thickness but the only exposed tissue his subcutaneous tissue, it does not seem to obviously tracked deeper although there are a couple of pits that may tract down to the abscess. I could not express any purulent fluid. There is no surrounding erythema. It really looks pretty clean.) Medical Decision Making Data Points Result Diagram: 07/10/1854707/10/18547 Assessment and Plan Problems: (1) Wound of foot Status: Acute Assessment & Plan: 07/10/18: Recommend continuing wound care as you are doing. I do not recommend any surgical intervention such as drainage because the abscess is very small and there does not look to be any bony involvement. I would recommend continuing IV antibiotics. If he shows signs of worsening ulceration or fluctuance or starts showing systemic signs of infection which she is not demonstrating currently then his foot and may need to be reimaged and if the abscess is getting larger then it may need surgical drainage. I have discussed this plan with the patient and he seems agreeable with this plan. Condition Stable Time Spent: < 30 min Venous Thromboembolism Antithrombotics Is Pt On Any Antithrombotics?: No SITA DE LA GARZA MD Jul 10, 2018 09:51
--- NOTE | 2018-07-10 10:25 | Antimicrobial Stewardship ---
Antimicrobial Stewardship Empiricly appropriate: Yes (Clindamycin + Cefepime) Significant PMH: Yes (CHF, afib/RVR, Cor Pulmonale, anasarca, (+) smoking history) Support empiric regimen: Yes (Clindamycin + Cefepime) Approriate Cultures done: Yes (07/09/18- wound cx pending) Renal/Hepatic dosing: Yes (Renal function reviewed, dosing appropriate) Clinically stable/improving: Yes IV to PO Opportunity: No Determine cumulative duration: Day 2 of therapy - 07/10/18 Determine standard duration: 10-14 days, will watch and de-escalate antibiotics as appropriate Comment 58 yo M who presented with SOB and anasarca, found to have afib/RVR, HFrEF with Cor Pulmonale. Pt has not sought medical care regarding these issues until recently where he was seen at urgent care. He was admitted on 07/01/18 and has been receiving wound care for wounds from compression stockings. On 07/09/18, pt with complaints about bottom off R foot, upon exam found to have a large callous with underlying abscess and surrounding erythema. Abscess was drained and sent for culture on 07/09/18, currently awaiting ID and Sens, started on antibiotics on 07/09/18. Tmax - has been afebrile and remains afebrile WBC wnl INR 1.32 -->1.56, on warfarin, s/p I and D, resume lovenox, goal 2-3 Digoxin level - 07/06 = 0.7, dose increased, consider digoxin level (trough) Scr - 0.5, now 0.7 -- stable Mag - 1.6 - consider recheck in a few days CRP 3 07/02- Foot Cx - dorsal part of foot, MSSA, Acinetobacter Baumanii 07/01- Blood Cx - 06/29 bottles with staph epi-- contaminant 07/09 - Wound Cx - right foot, callus/abscess- WBC, no org seen, cx pending 07/09/18- MRI of foot showed soft tissue swelling, no osteomyelitis Antibiotics: Clindamycin 600mg IV q8h, Cefepime 2g IV Q12H --> Continue antibiotics and wait for ID and Sens, de-escalate as appropriate. Treatment duration 10-14 days. Re- start Lovenox as no surgical intervention is planned, consider digoxin level and Magnesium level in the next few days. Yessenia Irizarry, PharmD, BCOP YESSENIA IRIZARRY Jul 10, 2018 10:17
[2018-07-10 11:26] VITALS: BP 113/57
[2018-07-10] MEDS: ENOXAPARIN 40 MG/0.4ML SYR SC SCH (11:29)
[2018-07-10] MEDS: CEFEPIME HCL 2 GM VIAL IVP SCH ×2 (11:48→23:04)
[2018-07-10] MEDS: WARFARIN SOD 5 MG TAB PO SCH (13:29)
[2018-07-10 15:00] VITALS: BP 108/76
[2018-07-10 23:04] VITALS: BP 117/75
[2018-07-10] MEDS: ACETAMINOPHEN 500 MG TAB PO PRN (23:29)
[2018-07-11 03:26] VITALS: BP 106/79
[2018-07-11] MEDS: CLINDAMYCIN(*) 600 MG/NS 50 ML 50 ML IVPB SCH ×2 (03:26→10:09)
[2018-07-11 06:14] LABS: INR 1.75
[2018-07-11 07:00] VITALS: BP 105/75
[2018-07-11] MEDS: POTASSIUM CHL 20 MEQ TABCR PO SCH ×2 (08:45→16:19)
[2018-07-11] MEDS: ENOXAPARIN 40 MG/0.4ML SYR SC SCH (08:45)
[2018-07-11] MEDS: NYSTATIN 100,000 U/GM PWD 15GM TP SCH (08:45)
[2018-07-11] MEDS: FUROSEMIDE 80 MG TAB PO SCH ×2 (08:45→13:32)
[2018-07-11] MEDS: METOPROLOL SUCC XL 25 MG TABCR PO SCH (08:45)
[2018-07-11] MEDS: DIGOXIN 0.25 MG TAB PO SCH (08:45)
[2018-07-11] MEDS: LACTOBACILLUS ACIDOPHILUS TAB PO SCH ×2 (10:09→16:19)
[2018-07-11 11:09] VITALS: BP 121/77
[2018-07-11] MEDS ORDERED: METO25TA23 PO (12:33)
[2018-07-11] MEDS ORDERED: WARF-1 PO (12:33)
[2018-07-11] MEDS ORDERED: FURO80TA70 PO (12:33)
[2018-07-11] MEDS ORDERED: [UNRECOGNIZED DRUG - CODE] PO (12:33)
[2018-07-11] MEDS ORDERED: CLIN300C99 PO (12:33)
[2018-07-11] MEDS ORDERED: POTA20TA94 PO (12:41)
--- NOTE | 2018-07-11 12:59 | Hospitalist Depart ---
Discharge Summary Reason for Hosp/Final Diag: (1) Acute systolic heart failure Hospital Course & Plan: Likely, secondary reduced EF, atrial fibrillation with RVR and 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 He presented worsening LE edema for about a year, scrotal swelling for about 3 months, and progressive dyspnea and orthopnea over the last couple weeks. He has diffuse anasarca with weeping leg wounds and 20cm diameter scrotum. He doesn't seek routine health care. His echocardiogram shows an ejection fraction of 45-50%. He has been receiving IV diuresis with fairly good effect. His weight is down about 10kg since admission. He has been converted to oral furosemide. He has also been started on metoprolol succinate for the HFrEF treatment and has tolerated it. He might benefit from DAVID inhibitor treatment, but has been limited by BP at this time. He still has significant edema, but hopefully he will continue with diuresis with outpatient treatment. He has follow up at the [facility] on 07/18. (2) Moderate to severe pulmonary hypertension Hospital Course & Plan: He seems to be responding fairly well to oxygen/diuresis. He will most likely need further evaluation to find definitive cause. He does have a long smoking history and continued to smoke up until admission. We have discussed the importance of cessation. (3) Anasarca Status: Acute Hospital Course & Plan: Secondary to heart failure. See above. (4) Wound of foot Status: Acute Hospital Course & Plan: He was found to have an ulcer on his right foot. He has been afebrile and had a normal WBC. An MRI showed what is possibly a small abscess deep to the main wound. This was evaluated by Dr. Villalta, and no surgical treatment is required at this time. The wound culture is growing Group B strep. He is on treatment with clindamycin and will continue as an outpatient to make a total of about a 10 day course. Wound care is ongoing and the next dressing change will need to be on 07/19, which has already been scheduled at [facility] outpatient rehab clinic. (5) Atrial fibrillation Status: Chronic Hospital Course & Plan: This was noted on his initial EKG. He is rate controlled with metoprolol and digoxin. He is on warfarin for stroke prophylaxis. His INR is 1.75 today. He will need an INR through the [facility]. (6) Elevated serum creatinine Status: Acute Hospital Course & Plan: Resolved with treatment of heart failure. (7) Inguinal hernia Status: Chronic Hospital Course & Plan: Left sided with loops of bowel in it. No evidence of strangulation. The patient reports that he has had it for 20-30 years, but hasn't been able to reduce the hernia in the last couple of weeks prior to admission. Dr. Quiroga (surgery) saw the patient and recommended optimizing CHF before considering any surgery. (8) CAD (coronary artery disease) Status: Chronic Hospital Course & Plan: He reportedly had occlusion of his RCA in his mid 20's without any intervention. Might consider starting ASA and a statin as well, but will defer starting until he stabilizes with the acute HFrEF exacerbation. Departure Weight (Pounds): 213 Weight (Ounces): 8.0 Result Diagram: 07/10/1848 07/11/18 0553 Item Value Date Time Enoxaparin Sodium 100 mg 07/01/18 1600 (Lovenox(*) 100 Q24H@1600/SC 07/05/18 1645 Mg/ml Syr (Or Equiv)) White Blood Count 8.4 k/uL 07/01/18 1107 White Blood Count 6.8 k/uL 07/02/18 0544 White Blood Count 9.7 k/uL 07/06/18 0530 White Blood Count 7.9 k/uL 07/08/18 0522 White Blood Count 7.6 k/uL 07/10/18 0548 Hemoglobin 13.6 g/dL L 07/10/18 0548 Hemoglobin 12.3 g/dL L 07/08/18 0522 Hemoglobin 12.7 g/dL L 07/06/18 0530 Hemoglobin 13.0 g/dL L 07/02/18 0544 Hemoglobin 13.6 g/dL L 07/01/18 1107 Platelet Count 273 K/uL 07/01/18 1107 Platelet Count 228 K/uL 07/02/18 0544 Platelet Count 240 K/uL 07/06/18 0530 Platelet Count 256 K/uL 07/08/18 0522 Platelet Count 253 K/uL 07/10/18 0548 Neutrophils (%) (Auto) 76.7 % H 07/01/18 1107 Neutrophils (%) (Auto) 75.7 % H 07/02/18 0544 Neutrophils (%) (Auto) 78.0 % H 07/06/18 0530 Neutrophils (%) (Auto) 71.3 % 07/08/18 05 Neutrophils (%) (Auto) 67.5 % 07/10/18 0548 Arterial Blood pH 7.35 07/01/18 0000 Arterial Blood Partial Pressure CO2 46 mmHg H 07/01/18 0000 Arterial Blood Partial Pressure O2 106 mmHg *H 07/01/18 0000 Arterial Blood HCO3 26 mmol/L 07/01/18 Arterial Blood Oxygen Saturation 98 % 07/01/18 0000 Prothromb Time International Ratio 1.75 07/11/18 0553 Prothromb Time International Ratio 1.56 07/10/18 0548 Prothromb Time International Ratio 1.32 07/09/18 0510 Prothromb Time International Ratio 1.18 07/08/18 0522 Prothromb Time International Ratio 1.13 07/07/18 0548 Magnesium Level 2.2 mg/dl 07/11/18 0553 Magnesium Level 1.6 mg/dl L 07/09/18 0510 Sodium Level 132 mmol/L L 07/11/18 0553 Sodium Level 133 mmol/L L 07/10/18 0548 Sodium Level 132 mmol/L L 07/09/18 0510 Sodium Level 134 mmol/L L 07/08/18 0522 Potassium Level 4.3 mmol/L 07/08/18 0522 Potassium Level 4.4 mmol/L 07/09/18 0510 Potassium Level 4.6 mmol/L 07/10/18 0548 Potassium Level 4.6 mmol/L 07/11/18 0553 Blood Urea Nitrogen 30 mg/dl H 07/11/18 0553 Blood Urea Nitrogen 26 mg/dl H 07/10/18 0548 Blood Urea Nitrogen 20 mg/dl 07/09/18 0510 Blood Urea Nitrogen 22 mg/dl H 07/08/18 0522 Creatinine 0.60 mg/dl L 07/08/18 0522 Creatinine 0.50 mg/dl L 07/09/18 0510 Creatinine 0.70 mg/dl 07/10/18 0548 Creatinine 0.60 mg/dl L 07/11/18 0553 Total Bilirubin 0.5 mg/dl 07/06/18 0530 Aspartate Amino Transf (AST/SGOT) 35 U/L 07/06/18 0530 Alanine Aminotransferase (ALT/SGPT) 37 U/L 07/06/18 0530 Alkaline Phosphatase 97 U/L 07/06/18 0530 Blood Urea Nitrogen 21 mg/dl 07/07/18 0548 Creatinine 0.60 mg/dl L 07/07/18 0548 Blood Urea Nitrogen 23 mg/dl H 07/06/18 0530 Creatinine 0.60 mg/dl L 07/06/18 0530 Creatinine 0.70 mg/dl 07/04/18 0533 Blood Urea Nitrogen 35 mg/dl H 07/04/18 0533 Blood Urea Nitrogen 50 mg/dl H 07/03/18 0524 Creatinine 0.90 mg/dl 07/03/18 0524 Creatinine 1.10 mg/dl 07/02/18 1711 Blood Urea Nitrogen 55 mg/dl H 07/02/18 1711 Thyroid Stimulating Hormone (TSH) 1.69 uIU/ml 07/02/18 0544 B-Type Natriuretic Peptide 711 pg/ml H 07/02/18 0544 B-Type Natriuretic Peptide 923 pg/ml H 07/01/18 1107 Magnesium Level 2.4 mg/dl H 07/01/18 1107 Lactate 1.3 mmol/L 07/01/18 1107 Blood Urea Nitrogen 56 mg/dl H 07/02/18 0544 Creatinine 1.20 mg/dl 07/02/18 0544 Total Bilirubin 0.7 mg/dl 07/02/18 0544 Aspartate Amino Transf (AST/SGOT) 41 U/L H 07/02/18 0544 Alanine Aminotransferase (ALT/SGPT) 42 U/L 07/02/18 0544 Alkaline Phosphatase 126 U/L 07/02/18 0544 Troponin I 0.036 ng/ml 07/02/18 0544 Total Bilirubin 0.8 mg/dl 07/01/18 1107 Aspartate Amino Transf (AST/SGOT) 54 U/L H 07/01/18 1107 Alanine Aminotransferase (ALT/SGPT) 49 U/L 07/01/18 1107 Alkaline Phosphatase 167 U/L H 07/01/18 1107 Troponin I 0.044 ng/ml 07/01/18 1107 Blood Urea Nitrogen 59 mg/dl H 07/01/18 1107 Creatinine 1.80 mg/dl H 07/01/18 1107 Sodium Level 141 mmol/L 07/01/18 1107 Potassium Level 4.2 mmol/L 07/01/18 1107 Chloride Level 104 mmol/L 07/01/18 1107 Carbon Dioxide Level 27 mmol/L 07/01/18 1107 Urine WBC 2 /HPF 07/01/18 1354 Urine Squamous Epithelial Cells Few /LPF 07/01/18 1354 Urine Bacteria Negative /HPF 07/01/18 1354 Urine RBC None /HPF 07/01/18 1354 Urine Urobilinogen Negative mg/dL 07/01/18 1354 Urine Nitrite Negative 07/01/18 1354 Digoxin Level 0.5 ng/ml 07/11/18 0553 Digoxin Level 0.7 ng/ml 07/06/18 0530 SPEC #: [id number] CARLOS: 07/09/18 STATUS: RES REQ #: [id number] RECD: 07/09/[address]: AUREA LONG MD SOURCE: FOOT ENTR: 07/09/[address]: ROBERTA MENDEZ MD SPDESC: RIGHT ORDERED: CULT WND A/A/AMA COMMENTS: Has specimen been collected/obtained? Y Procedure Result Verified GRAM STAIN Final 07/09/18-1237 RARE WHITE BLOOD CELLS NO ORGANISMS SEEN WOUNDCULTURE Preliminary 07/11/18 Organism 1 STREP AGALACTIAE GROUP B 1+ GROWTH ST AGALAC M.I.C. RX --------- --- AMPICILLIN <=0.25 S CEFOTAXIME <=0.12 S CEFTRIAXONE <=0.12 S CLINDAMYCIN <=0.25 S ERYTHROMYCIN <=0.12 S LINEZOLID <=2 S BENZYLPENICILLIN 0.12 S VANCOMYCIN 0.5 S ANAEROBE CULTURE PENDING SPEC #: [id number] CARLOS: 07/02/18 STATUS: COMP REQ #: [id number] RECD: 07/02/18 [facility] [address]: NIMISHA CARRANZA DO SOURCE: FOOT ENTR: 07/02/[address]: ROBERTA MENDEZ MD SPDESC: LEFT ORDERED: CULT WND A/A/GS COMMENTS: Has specimen been collected/obtained? Y Additional Information: left dorsum of foot ---- -------- Procedure Result Verified GRAM STAIN Final 07/02/18 NO ORGANISMS SEEN NO WHITE BLOOD CELLS WOUNDCULTURE Final 07/06/18 Organism 1 STAPHYLOCOCCUS AUREUS 1+ Organism 2 ACINETOBACTER BAUMANII RARE GROWTH STA AUREUS OLIVE BO M.I.CCecilia RX M.I.C. RX --------- --- --------- --- AMPICILLIN/SULBACTAM <=2 S CEFTAZIDIME 16 I CEFTRIAXONE 32 I CIPROFLOXACIN <=0.5 S 1 S CLINDAMYCIN <=0.25 S ERYTHROMYCIN <=0.25 S GENTAMICIN <=0.5 S <=1 S IMIPENEM <=0.25 S LEVOFLOXACIN 0.25 S 1 S LINEZOLID 2 S OXACILLIN 0.5 S BENZYLPENICILLIN 0.06 S PIPERACILLIN/TAZOBACTAM 32 I RIFAMPIN <=0.5 S TETRACYCLINE <=1 S TOBRAMYCIN <=1 S TRIMETHOPRIM/SULFAMETHOXAZOLE <=10 S <=20 S VANCOMYCIN 1 S ANAEROBE CULTURE Final 07/05/18 NO ANAEROBES ISOLATED SPEC #: [id number] CARLOS: 07/01/18 STATUS: COMP REQ #: [id number] RECD: 07/01/[address] [facility] [address]: SANDY PELLETIER [facility] SOURCE: BLOOD PER ENTR: 07/01/[address] [facility] [address]: ELISABETH QUIROGA MD [facility]: ORDERED: BCGS, CULT BLOOD Procedure Result Verified BLOOD CULTURE GRAM STAIN Final 07/02/18-1523 GRAM POSITIVE COCCI AEROBIC BOTTLE POSITIVE CALLED TO JAN WIGGINS @2010 CALLED BY: MT BLOOD CULTURE Final 07/07/18 Organism 1 STAPHYLOCOCCUS EPIDERMIDIS GROWTH PRESENT IN THE AEROBIC BOTTLE UNABLE TO DO SUSCEPTIBILITY SET SUSCEPTIBILITY TWICE AND IT TERMINATED WILL SEND OUT UPON REQUEST NO GROWTH IN ANAEROBIC BOTTLE. Imaging 07/09/18 Foot MRI - 1. Plantar right forefoot ulcer with MR evidence consistent with phlegmon within the underlying subcutaneous tissues with a small, central subcutaneous abscess with measurements as above. There may be linear extension of this abscess to the base of the wound. 2. No MRI evidence of right forefoot osteomyelitis or septic arthropathy. 3. Marked edema and skin thickening with enhancement involving the dorsal forefoot. Correlate for changes of cellulitis. 07/02/18 Echo - EF 45-50%. Global hypokinesis in the LV. Flattened septum consistent with RV pressure overload. RV is severely dilated. RV systolic function is reduced. RA is enlarged. Severe TR. RVSP is c/w severe pulmonary hypertension. 07/01/18 Chest CTA - 1. Negative CTA evaluation for PE although there is some technical limitation due to diminished contrast bolus and some motion in the bases. 2. Cardiomegaly with right atrial dilatation and findings of CHF including bilateral effusions and extensive body wall edema as well as mild ascites. 3. Massive left inguinal hernia contains loops of large and small bowel as well as fluid. 07/01/18 Abd/Pelvis CT - 1. Negative CTA evaluation for PE although there is some technical limitation due to diminished contrast bolus and some motion in the bases. 2. Cardiomegaly with right atrial dilatation and findings of CHF including bilateral effusions and extensive body wall edema as well as mild ascites. 3. Massive left inguinal hernia contains loops of large and small bowel as well as fluid. 07/01/18 Ankle Xray - 1. No acute osseous process. 07/01/18 CXR - 1. Moderate left-sided pleural effusion with hazy left basilar and left midlung opacities which may be secondary to atelectasis; however, airspace process such as pneumonia is difficult to fully exclude. EKG Vent. Rate : 139 BPM Atrial Rate : 147 BPM P-R Int : 000 ms QRS Dur : 094 ms QT Int : 304 ms P-R-T Axes : 000 120 066 degrees QTc Int : 462 ms Atrial fibrillation with rapid ventricular response Right axis deviation Low voltage QRS Septal infarct , age undetermined Abnormal ECG No previous ECGs available Confirmed by ROBERTA MENDEZ ([id number]) on 07/01/2018 3:26:15 PM Condition: Improved Discharge: Home Discharge Instructions Home Meds Reported Medications Potassium Gluconate (POTASSIUM) 99 Mg Tablet, 99 MG PO QDAY 07/02/18 Magnesium Oxide (MAGNESIUM) 250 Mg Tablet, 250 MG PO QDAY 07/02/18 Multivitamin (MULTIVITAMINS) 1 Each Capsule, 1 EACH PO QDAY, CAPSULE 07/02/18 Diet: No Added Salt (EYAD) Special Instructions: Go to the [facility] on 07/18 at the scheduled time. You will need refills of furosemide, digoxin, metoprolol and potassium. You will need a protime (aka INR) done then or the next day. The clinic will need to send a referal to [facility]'s outpatient PT department for wound care. Go to [facility]'s outpatient PT department on 07/19 at the scheduled time for wound care. Check your weight daily. If your weight is up 5 pounds from a baseline, then you should call the clinic or go to the ER. Wear O2 24 hours a day. Copies to: ; [facility] Venous Thromboembolism Antithrombotics Is Pt On Any Antithrombotics?: No Problem Qualifiers (1) Atrial fibrillation: Atrial fibrillation type: unspecified Qualified Codes: I48.91 - Unspecified atrial fibrillation ROBERTA MENDEZ MD Jul 11, 2018 12:59
[2018-07-11] MEDS: WARFARIN SOD 5 MG TAB PO SCH (13:33)
--- NOTE | 2018-07-11 14:40 | NUR ---
Physical Therapy Impression PT notified that pt would be discharged home later today. Arrangements made for pt to be seen at [facility] on Mon07/18/18 and pt scheduled for out pt wound care eval on 07/19/18 pending possible referral from clinic if appropriate. Pt agreeable to wound care prior to d/c with application of compression wraps to lower legs. Pt to continue to address fluid management with oral medications and diet changes. For all B) lower leg wounds: Non-excisional debridement completed with the use of tweezers to a depth of subcutaneous tissue in order to remove adhered slough and non-viable tissue. Wounds cleansed with sterile saline and vasaline applied to intact skin at both legs. Vasaline gauze applied to open area at R) anterior ankle followed by gauze for absorption. Vasaline gauze also applied to R) plantar surface of 3rd MTP wound, followed by layer of Qwick for absorption and padding. These were then secured with four flex compression wrap in a retrograde manner to address edema management. L) popliteal fossa wounds left open to air due to location and difficulty to secure dressing. Pt encouraged to have a clean chucks pad in contact with them while seated or in bed. Pt verbalizes understanding of importance of elevation of LE's above the level of the heart to assist with further edema reduction and continued compliance with medication and diet management for edema reduction as well. Physical Therapy Goals 1. Pt to ambulate >200' with least restrictive device and vital signs in safe range with modified indep 2. Pt to anders up/down 4 steps with rail and VS in safe range 3. Pt to be modified indep with bed mobility and supine to/from sit transfers 4. Pt to be modified indep with sit to/from stand transfers Patient's Goals
[2018-07-11] MEDS ORDERED: LOPERAMIDE HCL 2 MG CAP PO PRN (16:15)
[2018-07-11] MEDS ORDERED: LOPERAMIDE HCL 2 MG CAP PO ONE (16:15)
[2018-07-11 16:21] VITALS: BP 114/67
== END 2018-07-11 19:40 | disposition home or self-care (01) | DRG 292 ==
LOC: ER 11:18 → MED 15:04
PROVIDERS: ADMIT Internal Medicine; ATTEND Internal Medicine
PROC: 0JDP3ZZ Extraction of Left Lower Leg Subcutaneous Tissue and Fascia, Percutaneous Approach (ICD-10-PCS; principal; 2018-07-02)
PROC: 0JDP3ZZ Extraction of Left Lower Leg Subcutaneous Tissue and Fascia, Percutaneous Approach (ICD-10-PCS; 2018-07-02)
PROC: 0JDP3ZZ Extraction of Left Lower Leg Subcutaneous Tissue and Fascia, Percutaneous Approach (ICD-10-PCS; 2018-07-02)
PROC: 0JDP3ZZ Extraction of Left Lower Leg Subcutaneous Tissue and Fascia, Percutaneous Approach (ICD-10-PCS; 2018-07-02)
PROC: 0JDP3ZZ Extraction of Left Lower Leg Subcutaneous Tissue and Fascia, Percutaneous Approach (ICD-10-PCS; 2018-07-02)
PROC: 0JDP3ZZ Extraction of Left Lower Leg Subcutaneous Tissue and Fascia, Percutaneous Approach (ICD-10-PCS; 2018-07-02)
PROC: 0JDQ3ZZ Extraction of Right Foot Subcutaneous Tissue and Fascia, Percutaneous Approach (ICD-10-PCS; 2018-07-02)
PROC: 0JDR3ZZ Extraction of Left Foot Subcutaneous Tissue and Fascia, Percutaneous Approach (ICD-10-PCS; 2018-07-02)
PROC: 0JDR3ZZ Extraction of Left Foot Subcutaneous Tissue and Fascia, Percutaneous Approach (ICD-10-PCS; 2018-07-02)
PROC: 0HDLXZZ Extraction of Left Lower Leg Skin, External Approach (ICD-10-PCS; 2018-07-02)
PROC: 0JDP3ZZ Extraction of Left Lower Leg Subcutaneous Tissue and Fascia, Percutaneous Approach (ICD-10-PCS; 2018-07-05)
PROC: 0JDP3ZZ Extraction of Left Lower Leg Subcutaneous Tissue and Fascia, Percutaneous Approach (ICD-10-PCS; 2018-07-05)
PROC: 0JDP3ZZ Extraction of Left Lower Leg Subcutaneous Tissue and Fascia, Percutaneous Approach (ICD-10-PCS; 2018-07-05)
PROC: 0JDP3ZZ Extraction of Left Lower Leg Subcutaneous Tissue and Fascia, Percutaneous Approach (ICD-10-PCS; 2018-07-05)
PROC: 0JDQ3ZZ Extraction of Right Foot Subcutaneous Tissue and Fascia, Percutaneous Approach (ICD-10-PCS; 2018-07-05)
PROC: 0JDR3ZZ Extraction of Left Foot Subcutaneous Tissue and Fascia, Percutaneous Approach (ICD-10-PCS; 2018-07-05)
PROC: 0JDR3ZZ Extraction of Left Foot Subcutaneous Tissue and Fascia, Percutaneous Approach (ICD-10-PCS; 2018-07-05)
PROC: 0HDLXZZ Extraction of Left Lower Leg Skin, External Approach (ICD-10-PCS; 2018-07-05)
PROC: 0HDMXZZ Extraction of Right Foot Skin, External Approach (ICD-10-PCS; 2018-07-05)
PROC: 0JDP3ZZ Extraction of Left Lower Leg Subcutaneous Tissue and Fascia, Percutaneous Approach (ICD-10-PCS; 2018-07-09)
PROC: 0JDP3ZZ Extraction of Left Lower Leg Subcutaneous Tissue and Fascia, Percutaneous Approach (ICD-10-PCS; 2018-07-09)
PROC: 0JDQ3ZZ Extraction of Right Foot Subcutaneous Tissue and Fascia, Percutaneous Approach (ICD-10-PCS; 2018-07-09)
PROC: 0JDQ3ZZ Extraction of Right Foot Subcutaneous Tissue and Fascia, Percutaneous Approach (ICD-10-PCS; 2018-07-09)
PROC: 0JDR3ZZ Extraction of Left Foot Subcutaneous Tissue and Fascia, Percutaneous Approach (ICD-10-PCS; 2018-07-09)
PROC: 0JDR3ZZ Extraction of Left Foot Subcutaneous Tissue and Fascia, Percutaneous Approach (ICD-10-PCS; 2018-07-09)
PROC: 0HDLXZZ Extraction of Left Lower Leg Skin, External Approach (ICD-10-PCS; 2018-07-09)
PROC: 0HDLXZZ Extraction of Left Lower Leg Skin, External Approach (ICD-10-PCS; 2018-07-09)
PROC: 0HDLXZZ Extraction of Left Lower Leg Skin, External Approach (ICD-10-PCS; 2018-07-09)
PROC: 0HDLXZZ Extraction of Left Lower Leg Skin, External Approach (ICD-10-PCS; 2018-07-09)
PROC: 0HDLXZZ Extraction of Left Lower Leg Skin, External Approach (ICD-10-PCS; 2018-07-09)
PROC: 0JDP3ZZ Extraction of Left Lower Leg Subcutaneous Tissue and Fascia, Percutaneous Approach (ICD-10-PCS; 2018-07-11)
PROC: 0JDP3ZZ Extraction of Left Lower Leg Subcutaneous Tissue and Fascia, Percutaneous Approach (ICD-10-PCS; 2018-07-11)
PROC: 0JDQ3ZZ Extraction of Right Foot Subcutaneous Tissue and Fascia, Percutaneous Approach (ICD-10-PCS; 2018-07-11)
PROC: 0JDQ3ZZ Extraction of Right Foot Subcutaneous Tissue and Fascia, Percutaneous Approach (ICD-10-PCS; 2018-07-11)
DX: I50.21 Acute systolic (congestive) heart failure (principal); L02.611 Cutaneous abscess of right foot; L97.311 Non-pressure chronic ulcer of right ankle limited to breakdown of skin; L97.518 Non-pressure chronic ulcer of other part of right foot with other specified severity; K40.90 Unilateral inguinal hernia, without obstruction or gangrene, not specified as recurrent; I25.10 Atherosclerotic heart disease of native coronary artery without angina pectoris; F17.210 Nicotine dependence, cigarettes, uncomplicated; B95.1 Streptococcus, group B, as the cause of diseases classified elsewhere; R60.1 Generalized edema; I48.2 Chronic atrial fibrillation; I27.81 Cor pulmonale (chronic); R09.02 Hypoxemia; Z88.0 Allergy status to penicillin
CPT/HCPCS: 36415; 36600; 71045; 71275; 73720; 74177; 80162; 81001; 82040; 82247; 82310; 82374; 82435; 82565; 82803; 82947; 83605; 83735; 83880; 84075; 84132; 84155; 84295; 84443; 84450; 84460; 84484; 84520; 85025; 85379; 85610; 86140; 87040; 87070; 87073; 87077; 87186; 87205; 87324; 87449; 93005; 93306; 96374; 97161; 97162; 97165; 99285; A9577; C1758; J0692; J1160; J1650; J1940; J3490; J7050; Q9967

== ENCOUNTER 2018-07-12 14:36 | Outpatient (RCR) | payer SELFPAY ==
[~2018-07-12 14:36] MED LIST: CLIN300C99 PO; FURO80TA70 PO; MAGN250T34 PO; METO25TA23 PO; MULT1CAP59 PO; POTA20TA94 PO; POTA99TA6 PO; WARF-1 PO; [UNRECOGNIZED DRUG - CODE] PO; mag
--- NOTE | 2018-07-13 14:05 | Transitional Care Management ---
Assessment Visit Type: Telephone Visit Spoke with: Rachid Cardiac Comment: 07/13 denies worsening of sx Respiratory Comment: 07/13 denies SOB or cough worsening. Has O2 set up at home and states he uses it GI Comment: 07/13 states easier to manage low NA at home and "pinpointing 2L restriction" at home or is just under. Weight Comment: 07/13 states wt is down to #198 Mobility Comment: 07/14 has walker Integumentary Comment: 07/14 has OP appt with IM on 07/19 Scheduled Follow-Up with Provi: Yes (07/18 at [facility]) Community Resources/HHC: 07/13 has talked with JONAH today. has paperwork to complete for financial assist Questions for Future PCP Visit: 07/13 refill of rx for lasix, KCL, digoxin, metoprolol. INR and change of coumadin TCM Discharge Criteria Medication Knowledge: 07/14 has picked up his meds Disease Management/Concern/Wha: s/s CHF exacerbation Transitional Care Comment: 07/04 Review CHF, zones, a fib, quit smoking. States its a lot of care he will need when he goes home and doesn't know if he can do it. Gave list of local MD's and those that don't require insurance. Listened to quit smoking info but, didn't like inhaler and is noncommital to quitting. 07/05 [facility] cant see him for 2-3 weeks. Made appt with [facility] on Monday at 2;40 to do paperwork, provider at 3pm. Needs wound care, INR. 07/06 Talked with patient about use of O2 but he reluctant to use 16/01. Doesn't want to talk about smoking cessation. He feels as though he has no control over his life. His legs are so swollen at this point that he can't get shoes on. 07/09 discussed yellow and red flags of CHF. Ie low NA+ diet, fluid restrictions, Low NA+ diet. Offered other outside resources but he was not really open to anything at this time. 07/10 Went over diet, qd wt and document, fluid restriction,Activity. He comments that he just wants to go home. 07/13 States he picked up meds and is taking them, daily wt, has walker and o2. Able to state diet and fluid restrictions, dates for f/u. Unable to complete ed as pt states he is not home and has to get there soon for a delivery WALDEMAR JOHN Jul 13, 2018 14:05
--- NOTE | 2018-07-16 15:18 | Transitional Care Management ---
Assessment Visit Type: Telephone Visit Cardiac Comment: 07/13 denies worsening of sx Respiratory Comment: 07/13 denies SOB or cough worsening. Has O2 set up at home and states he uses it 07/16 denies SOB, states breathing is fine GI Comment: 07/13 states easier to manage low NA at home and "pinpointing 2L restriction" at home or is just under. Weight Comment: 07/13 states wt is down to #198 07/16 states wt has "plateaued" at 195# Mobility Comment: 07/14 has walker Integumentary Comment: 07/14 has OP appt with IM on 07/19 Scheduled Follow-Up with Provi: Yes (07/18 at [facility]) Community Resources/HHC: 07/13 has talked with JONAH today. has paperwork to complete for financial assist Questions for Future PCP Visit: 07/13 refill of rx for lasix, KCL, digoxin, metoprolol. INR and change of coumadin TCM Discharge Criteria Medication Knowledge: 07/14 has picked up his meds Disease Management/Concern/Wha: s/s CHF exacerbation Transitional Care Comment: 07/04 Review CHF, zones, a fib, quit smoking. States its a lot of care he will need when he goes home and doesn't know if he can do it. Gave list of local MD's and those that don't require insurance. Listened to quit smoking info but, didn't like inhaler and is noncommital to quitting. 07/05 [facility] cant see him for 2-3 weeks. Made appt with [facility] on Monday at 2;40 to do paperwork, provider at 3pm. Needs wound care, INR. 07/06 Talked with patient about use of O2 but he reluctant to use 16/01. Doesn't want to talk about smoking cessation. He feels as though he has no control over his life. His legs are so swollen at this point that he can't get shoes on. 07/09 discussed yellow and red flags of CHF. Ie low NA+ diet, fluid restrictions, Low NA+ diet. Offered other outside resources but he was not really open to anything at this time. 07/10 Went over diet, qd wt and document, fluid restriction,Activity. He comments that he just wants to go home. 07/13 States he picked up meds and is taking them, daily wt, has walker and o2. Able to state diet and fluid restrictions, dates for f/u. Unable to complete ed as pt states he is not home and has to get there soon for a delivery 07/16 pt reports he is doing well. Has appt with [facility] this week, has been working on paperwork for finances, and knows he needs to ask for refills on his medications when he gets established with the provider [facility] the [facility]. He states he has not heard from anyone at [facility] and had called them to inquire and whoever he spoke to said they knew nothing about him. I called [facility] and they have him set up with Christen for CM and she should be calling him soon. AUGUST,STEPHANIA Horan Jul 16, 2018 15:18
--- NOTE | 2018-07-23 14:35 | Transitional Care Management ---
Assessment Visit Type: Telephone Visit Cardiac Comment: 07/13 denies worsening of sx Respiratory Comment: 07/13 denies SOB or cough worsening. Has O2 set up at home and states he uses it 07/16 denies SOB, states breathing is fine GI Comment: 07/13 states easier to manage low NA at home and "pinpointing 2L restriction" at home or is just under. Weight Comment: 07/13 states wt is down to #198 07/16 states wt has "plateaued" at 195# 07/23 wt is down to 185# Mobility Comment: 07/14 has walker Integumentary Comment: 07/14 has OP appt with IM on 07/19 Scheduled Follow-Up with Provi: Yes (07/18 at [facility]) Community Resources/HHC: 07/13 has talked with JONAH today. has paperwork to complete for financial assist Questions for Future PCP Visit: 07/13 refill of rx for lasix, KCL, digoxin, metoprolol. INR and change of coumadin TCM Discharge Criteria Medication Knowledge: 07/14 has picked up his meds Disease Management/Concern/Wha: s/s CHF exacerbation Transitional Care Comment: 07/04 Review CHF, zones, a fib, quit smoking. States its a lot of care he will need when he goes home and doesn't know if he can do it. Gave list of local MD's and those that don't require insurance. Listened to quit smoking info but, didn't like inhaler and is noncommital to quitting. 07/05 [facility] cant see him for 2-3 weeks. Made appt with [facility] on Monday at 2;40 to do paperwork, provider at 3pm. Needs wound care, INR. 07/06 Talked with patient about use of O2 but he reluctant to use /. Doesn't want to talk about smoking cessation. He feels as though he has no control over his life. His legs are so swollen at this point that he can't get shoes on. 07/09 discussed yellow and red flags of CHF. Ie low NA+ diet, fluid restrictions, Low NA+ diet. Offered other outside resources but he was not really open to anything at this time. 07/10 Went over diet, qd wt and document, fluid restriction,Activity. He comments that he just wants to go home. 07/13 States he picked up meds and is taking them, daily wt, has walker and o2. Able to state diet and fluid restrictions, dates for f/u. Unable to complete ed as pt states he is not home and has to get there soon for a delivery 07/16 pt reports he is doing well. Has appt with [facility] this week, has been working on paperwork for finances, and knows he needs to ask for refills on his medications when he gets established with the provider at the [facility]. He states he has not heard from anyone at [facility] and had called them to inquire and whoever he spoke to said they knew nothing about him. I called [facility] and they have him set up with Christen for CM and she should be calling him soon. 07/23 pt reports he is doing well, got everything "squared away" with the [facility], got paperwork done and has all his refills on medications. Has had more blood work done and is doing rehab. He is following his fluid restriction. [facility] has called him and are working with him. pt reported no problems AUGUSTSTEPHANIA Jul 23, 2018 14:35
--- NOTE | 2018-07-31 16:29 | Transitional Care Management ---
Assessment Visit Type: Telephone Visit Spoke with: Rachid Cardiac Comment: 07/13 denies worsening of sx 07/31 NO swelling Respiratory Comment: 07/13 denies SOB or cough worsening. Has O2 set up at home and states he uses it 07/16 denies SOB, states breathing is fine 2/ No SOB or cough. Using O2 only at home . will ask MD if he can be off it . GI Comment: 07/13 states easier to manage low NA at home and "pinpointing 2L restriction" at home or is just under. 2/ Still having diarrhea intermitently. Will tell MD at next appt to get sample. using immodium. no abd pain. limiting na and fluids Weight Comment: 07/13 states wt is down to #198 07/16 states wt has "plateaued" at 195# 07/23 wt is down to 185# 2/ wt to 175, wt daily, no swelling Musculoskeletal, Excercise Com: 07/31 using walker for stability. no falls since dc Mobility Comment: 07/14 has walker Integumentary Comment: 07/14 has OP appt with [facility] on 07/19 Feeling of Well Being Comment: 2/ returned to work 4-5 hour shifts 1 wk after dc and now working 55 hrs a week Scheduled Follow-Up with Provi: Yes (07/18 at [facility]) Community Resources/HHC: 07/13 has talked with JONAH today. has paperwork to complete for financial assist 07/31 waitiing for w-2 to apply for assist at [facility] and with [facility] for disability alexander Questions for Future PCP Visit: 07/13 refill of rx for lasix, KCL, digoxin, metoprolol. INR and change of coumadin TCM Discharge Criteria Medication Knowledge: 07/14 has picked up his meds 07/31 INR 2.5, 2.9; rechecks tomorrow. same meds Disease Management/Concern/Wha: s/s CHF exacerbation Transitional Care Comment: 07/04 Review CHF, zones, a fib, quit smoking. States its a lot of care he will need when he goes home and doesn't know if he can do it. Gave list of local MD's and those that don't require insurance. Listened to quit smoking info but, didn't like inhaler and is noncommital to quitting. 07/05 [facility] cant see him for 2-3 weeks. Made appt with [facility] on Monday at 2;40 to do paperwork, provider at 3pm. Needs wound care, INR. 07/06 Talked with patient about use of O2 but he reluctant to use 16/01. Doesn't want to talk about smoking cessation. He feels as though he has no control over his life. His legs are so swollen at this point that he can't get shoes on. 07/09 discussed yellow and red flags of CHF. Ie low NA+ diet, fluid restrictions, Low NA+ diet. Offered other outside resources but he was not really open to anything at this time. 07/10 Went over diet, qd wt and document, fluid restriction,Activity. He comments that he just wants to go home. 07/13 States he picked up meds and is taking them, daily wt, has walker and o2. Able to state diet and fluid restrictions, dates for f/u. Unable to complete ed as pt states he is not home and has to get there soon for a delivery 07/16 pt reports he is doing well. Has appt with [facility] this week, has been working on paperwork for finances, and knows he needs to ask for refills on his medications when he gets established with the provider at the [facility]. He states he has not heard from anyone at [facility] and had called them to inquire and whoever he spoke to said they knew nothing about him. I called [facility] and they have him set up with Christen for CM and she should be calling him soon. 07/23 pt reports he is doing well, got everything "squared away" with the [facility], got paperwork done and has all his refills on medications. Has had more blood work done and is doing rehab. He is following his fluid restriction. [facility] has called him and are working with him. pt reported no problems 07/31 Excited he can tie his shoes now as before he couldnt reach them. States wound care only 1-2 more weeks. Left leg is healed and rleg is 75% closed. Able to IADL's and work; feels much better. Requests another phone call in 2 weeks or so WALDEMAR JOHN Jul 31, 2018 16:29
--- NOTE | 2018-08-17 10:17 | Transitional Care Management ---
Assessment Visit Type: Telephone Visit Spoke with: Rachid Cardiac Comment: 07/13 denies worsening of sx 07/31 NO swelling 08/17 reports swelling is still gone Respiratory Comment: 07/13 denies SOB or cough worsening. Has O2 set up at home and states he uses it 07/16 denies SOB, states breathing is fine 07/31 No SOB or cough. Using O2 only at home . will ask MD if he can be off it . 08/17 still wearing O2 at home, cannot wear at work due to safety issues GI Comment: 07/13 states easier to manage low NA at home and "pinpointing 2L restriction" at home or is just under. 07/31 Still having diarrhea intermitently. Will tell MD at next appt to get sample. using immodium. no abd pain. limiting na and fluids 08/17 still having diarrhea, diagnosed with c-diff and is taking abx for treatment. Off of work until fully treated. Weight Comment: 07/13 states wt is down to #198 07/16 states wt has "plateaued" at 195# 07/23 wt is down to 185# 07/31 wt to 175, wt daily, no swelling 08/17 most recent wt is 164 Musculoskeletal, Excercise Com: 07/31 using walker for stability. no falls since dc Mobility Comment: 07/14 has walker Integumentary Comment: 07/14 has OP appt with [facility] on 07/19 08/17 has been DCed from OP wound care as of yesterday, healed Feeling of Well Being Comment: 07/31 returned to work 4-5 hour shifts 1 wk after dc and now working 55 hrs a week 08/17 off of work due to c-diff Scheduled Follow-Up with Provi: Yes (07/18 at [facility]) Community Resources/HHC: 07/13 has talked with JONAH today. has paperwork to complete for financial assist 07/31 waitiing for w-2 to apply for assist at [facility] and with [facility] for disability alexander 08/17 has payment plan set up for [facility] bill, has appt with [facility] next Mon, reports they have been very hard to get ahold of Questions for Future PCP Visit: 07/13 refill of rx for lasix, KCL, digoxin, metoprolol. INR and change of coumadin TCM Discharge Criteria Medication Knowledge: 07/14 has picked up his meds 07/31 INR 2.5, 2.9; rechecks tomorrow. same meds 08/17 states coumadin level is now regulated Disease Management/Concern/Wha: s/s CHF exacerbation Transitional Care Comment: 07/04 Review CHF, zones, a fib, quit smoking. States its a lot of care he will need when he goes home and doesn't know if he can do it. Gave list of local MD's and those that don't require insurance. Listened to quit smoking info but, didn't like inhaler and is noncommital to quitting. 07/05 [facility] cant see him for 2-3 weeks. Made appt with [facility] on Monday at 2;40 to do paperwork, provider at 3pm. Needs wound care, INR. 07/06 Talked with patient about use of O2 but he reluctant to use 16/01. Doesn't want to talk about smoking cessation. He feels as though he has no control over his life. His legs are so swollen at this point that he can't get shoes on. 07/09 discussed yellow and red flags of CHF. Ie low NA+ diet, fluid restrictions, Low NA+ diet. Offered other outside resources but he was not really open to anything at this time. 07/10 Went over diet, qd wt and document, fluid restriction,Activity. He comments that he just wants to go home. 07/13 States he picked up meds and is taking them, daily wt, has walker and o2. Able to state diet and fluid restrictions, dates for f/u. Unable to complete ed as pt states he is not home and has to get there soon for a delivery 07/16 pt reports he is doing well. Has appt with [facility] this week, has been working on paperwork for finances, and knows he needs to ask for refills on his medications when he gets established with the provider at the [facility]. He states he has not heard from anyone at [facility] and had called them to inquire and whoever he spoke to said they knew nothing about him. I called [facility] and they have him set up with Christen for CM and she should be calling him soon. 07/23 pt reports he is doing well, got everything "squared away" with the [facility], got paperwork done and has all his refills on medications. Has had more blood work done and is doing rehab. He is following his fluid restriction. [facility] has called him and are working with him. pt reported no problems / Excited he can tie his shoes now as before he couldnt reach them. States wound care only 1-2 more weeks. Left leg is healed and rleg is 75% closed. Able to IADL's and work; feels much better. Requests another phone call in 2 weeks or so 08/17 discouraged about c-diff and not being able to work again. All other problems are resolving or are managed well at this point. Agrees to another call in 2 weeks STEPHANIA GATES Aug 17, 2018 10:17
--- NOTE | 2018-09-07 15:11 | Transitional Care Management ---
Assessment Visit Type: Telephone Visit Cardiac Comment: 07/13 denies worsening of sx 07/31 NO swelling 08/17 reports swelling is still gone Respiratory Comment: 07/13 denies SOB or cough worsening. Has O2 set up at home and states he uses it 07/16 denies SOB, states breathing is fine 07/31 No SOB or cough. Using O2 only at home . will ask MD if he can be off it . 08/17 still wearing O2 at home, cannot wear at work due to safety issues GI Comment: 07/13 states easier to manage low NA at home and "pinpointing 2L restriction" at home or is just under. 07/31 Still having diarrhea intermitently. Will tell MD at next appt to get sample. using immodium. no abd pain. limiting na and fluids 08/17 still having diarrhea, diagnosed with c-diff and is taking abx for treatment. Off of work until fully treated. Weight Comment: 07/13 states wt is down to #198 07/16 states wt has "plateaued" at 195# 07/23 wt is down to 185# 07/31 wt to 175, wt daily, no swelling 08/17 most recent wt is 164 Musculoskeletal, Excercise Com: 07/31 using walker for stability. no falls since dc Mobility Comment: 07/14 has walker Integumentary Comment: 07/14 has OP appt with [facility] on 07/19 08/17 has been DCed from OP wound care as of yesterday, healed Feeling of Well Being Comment: 07/31 returned to work 4-5 hour shifts 1 wk after dc and now working 55 hrs a week 08/17 off of work due to c-diff Scheduled Follow-Up with Lynni: Yes (07/18 at [facility]) Community Resources/HHC: 07/13 has talked with JONAH today. has paperwork to complete for financial assist 07/31 waitiing for w-2 to apply for assist at [facility] and with [facility] for disability alexander 08/17 has payment plan set up for [facility] bill, has appt with [facility] next Mon, reports they have been very hard to get ahold of Questions for Future PCP Visit: 07/13 refill of rx for lasix, KCL, digoxin, metoprolol. INR and change of coumadin TCM Discharge Criteria Medication Knowledge: 07/14 has picked up his meds 07/31 INR 2.5, 2.9; rechecks tomorrow. same meds 08/17 states coumadin level is now regulated Disease Management/Concern/Wha: s/s CHF exacerbation Transitional Care Comment: 07/04 Review CHF, noel, a fib, quit smoking. States its a lot of care he will need when he goes home and doesn't know if he can do it. Gave list of local MD's and those that don't require insurance. Listened to quit smoking info but, didn't like inhaler and is noncommital to quitting. 07/05 [facility] cant see him for 2-3 weeks. Made appt with [facility] on Monday at 2;40 to do paperwork, provider at 3pm. Needs wound care, INR. 07/06 Talked with patient about use of O2 but he reluctant to use 16/01. Doesn't want to talk about smoking cessation. He feels as though he has no control over his life. His legs are so swollen at this point that he can't get shoes on. 07/09 discussed yellow and red flags of CHF. Ie low NA+ diet, fluid restrictions, Low NA+ diet. Offered other outside resources but he was not really open to anything at this time. 07/10 Went over diet, qd wt and document, fluid restriction,Activity. He comments that he just wants to go home. 07/13 States he picked up meds and is taking them, daily wt, has walker and o2. Able to state diet and fluid restrictions, dates for f/u. Unable to complete ed as pt states he is not home and has to get there soon for a delivery 07/16 pt reports he is doing well. Has appt with [facility] this week, has been working on paperwork for finances, and knows he needs to ask for refills on his medications when he gets established with the provider at the [facility]. He states he has not heard from anyone at [facility] and had called them to inquire and whoever he spoke to said they knew nothing about him. I called [facility] and they have him set up with Christen for CM and she should be calling him soon. 07/23 pt reports he is doing well, got everything "squared away" with the [facility], got paperwork done and has all his refills on medications. Has had more blood work done and is doing rehab. He is following his fluid restriction. JONAH has called him and are working with him. pt reported no problems 07/31 Excited he can tie his shoes now as before he couldnt reach them. States wound care only 1-2 more weeks. Left leg is healed and rleg is 75% closed. Able to IADL's and work; feels much better. Requests another phone call in 2 weeks or so 08/17 discouraged about c-diff and not being able to work again. All other problems are resolving or are managed well at this point. Agrees to another call in 2 weeks 09/07 Rachid reports everything is going well. C-diff is "all cleared up", wt is maintaining at 163-165 pounds, and medications are all regulated now. He has continued going to the [employer] [facility] and likes the staff there. He was able to buy his own oxygen concentrator from them as they recieved some when an oxygen company went out of business. He is happy to own one instead of renting one anymore. No further concerns, will discharge from program. AUGUST,STEPHANIA Horan Sep 07, 2018 15:11
== END 2018-09-07 15:33 | disposition home or self-care (01) ==
LOC: TCM 14:36
PROVIDERS: ATTEND Nurse Practitioner
DX: Z02.9 Encounter for administrative examinations, unspecified (principal)

== ENCOUNTER → 2018-07-24 | Outpatient (REF) | LOC: PT 14:30 | PROVIDERS: ATTEND Internal Medicine | DX: S91.001A Unspecified open wound, right ankle, initial encounter (principal); S81.802A Unspecified open wound, left lower leg, initial encounter; S91.301A Unspecified open wound, right foot, initial encounter; R60.9 Edema, unspecified; I25.10 Atherosclerotic heart disease of native coronary artery without angina pectoris; I48.91 Unspecified atrial fibrillation; I27.0 Primary pulmonary hypertension; I50.9 Heart failure, unspecified ==

== ENCOUNTER → 2018-07-26 | Outpatient (REF) | LOC: PT 14:28 | PROVIDERS: ATTEND Internal Medicine | DX: S81.802A Unspecified open wound, left lower leg, initial encounter (principal) ==

== ENCOUNTER → 2018-08-02 | Outpatient (REF) | payer SELFPAY | LOC: PT 15:00 | PROVIDERS: ATTEND Internal Medicine | DX: S81.802A Unspecified open wound, left lower leg, initial encounter (principal); S81.801A Unspecified open wound, right lower leg, initial encounter ==

== ENCOUNTER → 2018-08-09 | Outpatient (REF) | LOC: PT 14:26 | PROVIDERS: ATTEND Internal Medicine | DX: S81.802A Unspecified open wound, left lower leg, initial encounter (principal); S81.801A Unspecified open wound, right lower leg, initial encounter ==

== ENCOUNTER → 2018-08-16 | Outpatient (REF) ==
--- NOTE | 2018-08-16 15:56 | PT PLAN OF CARE ---
Physician: Dr. Crespo Patient is being seen: Rachid Milian Therapist: Christen Minor, PT, DPT Medical Diagnosis: Bilateral LE wounds Treatment Diagnosis: Bilateral LE wounds secondary to friction from compression stockings Date of Onset: 07/01/18 Date of Initial Evaluation: 07/19/18 Date patient was last seen: 08/16/18 Number of treatments: 6 Number of cancellations/No shows: 0 INTERVENTIONS: The patient was seen for skilled PT wound care to include conservative sharps debridement as well as advanced wound care product selection and application, as well as compression management. Short Term Goals (met) 1: Pt to maintain dressings clean, dry and intact between wound care visits. 2: Wounds to demonstrate 100% granulation tissue 3: Wounds to epitheliaze from the edges inward and demonstrate 100% closure 4: Pt to obtain appropriate compression stockings to address entire LE edema 5: Pt to be referred to a lymphedema specialist to further assess LE edema (pt declined need) PATIENT'S GOAL: Wound Healing Status of Patient's Goals: met Patient Compliance: good Prognosis: good Reasons for continuing therapy: None at this time. The patient was fully healed and discharged with the compression stockings that he elected to use despite previous breakdown caused by these stockings. The patient was educated on the importance of frequent and diligent skin checks. Thank you for this referral. If you have any questions, comments, or concerns about this report or plan, please contact me at . Christen Minor, PT, DPT [facility]
== END ==
LOC: PT 14:29
PROVIDERS: ATTEND Internal Medicine
DX: R60.0 Localized edema (principal)

== ENCOUNTER → 2018-10-15 | Outpatient (REF) ==
--- NOTE | 2018-10-15 11:07 | RADIOLOGY IMAGING REPORT ---
FACILITY: [facility] [place] PATIENT NAME: Rachid Milian : 1960 MR: [id number] V: [id number] EXAM DATE: ORDERING PHYSICIAN: STEPHANIE WYLIE TECHNOLOGIST: Location: [facility] Patient: Rachid Milian : 1960 Visit/Account:[id number] Date of Sevice: 10/15/2018 L-SPINE 2 OR 3 VIEW, HIPS BILATERAL Indication: Right hip pain and sciatica, Comparison: None available FINDINGS: There are 5 lumbar type vertebral bodies. There is no acute osseous or acute alignment abnormality. There is moderate diffuse multilevel degenerative disc space disease. Disc space narrowing is noted at all levels but is greatest at L2-3 and L3-4. Endplate osteophyte formation is noted. No spondylo listhesis is seen. The vertebral body heights appear well-maintained. Bilateral hips: Paperclips holding the patient's hernia girdle are present over the femoral heads. No evidence of fracture, dislocation, or acute osseous abnormality of the bones of the pelvis. There is evidence of hip dysplasia on the right with associated severe osteoarthritis. A shallow jacobo tabulum, subchondral sclerosis and cyst formation with remodeling of the femoral head is present. Mi ld degenerative changes are present on the left. IMPRESSION: 1. Moderate diffuse multilevel degenerative disc space disease of the lumbar spine, no acute abnorma lity noted 2. Severe degenerative arthritis of the right hip with mild underlying dysplasia. Mild degenerative changes are seen on the left Report Dictated By: Kuldip Byrnes at 10/15/2018 10:57 AM Report E-Signed By: Kuldip Byrnes at 10/15/2018 11:03 AM WSN:[email or web address]
--- NOTE | 2018-10-15 11:08 | RADIOLOGY IMAGING REPORT ---
FACILITY: [facility] PATIENT NAME: Rachid Milian : 1960 MR: [id number] V: [id number] EXAM DATE: ORDERING PHYSICIAN: STEPHANIE WYLIE TECHNOLOGIST: Location: [facility] Patient: Rachid Milian : 1960 Visit/Account:[id number] Date of Sevice: 10/15/2018 L-SPINE 2 OR 3 VIEW, HIPS BILATERAL Indication: Right hip pain and sciatica, Comparison: None available FINDINGS: There are 5 lumbar type vertebral bodies. There is no acute osseous or acute alignment abnormality. There is moderate diffuse multilevel degenerative disc space disease. Disc space narrowing is noted at all levels but is greatest at L2-3 and L3-4. Endplate osteophyte formation is noted. No spondylo listhesis is seen. The vertebral body heights appear well-maintained. Bilateral hips: Paperclips holding the patient's hernia girdle are present over the femoral heads. No evidence of fracture, dislocation, or acute osseous abnormality of the bones of the pelvis. There is evidence of hip dysplasia on the right with associated severe osteoarthritis. A shallow jacobo tabulum, subchondral sclerosis and cyst formation with remodeling of the femoral head is present. Mi ld degenerative changes are present on the left. IMPRESSION: 1. Moderate diffuse multilevel degenerative disc space disease of the lumbar spine, no acute abnorma lity noted 2. Severe degenerative arthritis of the right hip with mild underlying dysplasia. Mild degenerative changes are seen on the left Report Dictated By: Kuldip Byrnes at 10/15/2018 10:57 AM Report E-Signed By: Kuldip Byrnes at 10/15/2018 11:03 AM WSN:[email or web address]
== END ==
LOC: RAD 10:15
PROVIDERS: ATTEND Orthopaedic Surgery Orthopaedic Surgery of the Spine
DX: M25.551 Pain in right hip (principal); M54.31 Sciatica, right side
CPT/HCPCS: 72100; 73522